=== PATIENT | female | born 1950 | race Caucasian/White ===

== ENCOUNTER 2017-10-20 09:34 | Inpatient (IN) | payer OTHER ==
[2017-10-04 09:08] VITALS: BMI 28.0
--- NOTE | 2017-10-05 13:53 | PAT Medication Instructions ---
Service Date Oct 05, 2017. Current Home Medication List Acetaminophen (Tylenol), 1,000 MG PO PRN Albuterol Sulfate (Proair Respiclick), 1-2 PUFFS INH PRN Amlodipine (Norvasc), 5 MG PO QAM Aspirin (Aspirin Ec), 81 MG PO QAM Atorvastatin (Lipitor), 10 MG PO QPM Calcium Carbonate-Cholecalcife (Caltrate 600+D), 1 TAB PO BID Fluticasone Propionate (Nasal) (Flonase Allergy Relief), 2 SPRAYS INTNAS PRN Loratadine (Claritin), 10 MG PO QAM Meloxicam (Mobic), 15 MG PO QAM Metoprolol Succinate (Toprol Xl), 50 MG PO BID Multiple Vitamins W/ Minerals (Hair Skin and Nails Formu), 1 TAB PO BID Medication Instructions For Your Scheduled Surgery - Check with surgeon for instructions: Meloxicam (Mobic), 15 MG PO QAM - Hold the following medications the morning of surgery: Multiple Vitamins W/ Minerals (Hair Skin and Nails Formu), 1 TAB PO BID Loratadine (Claritin), 10 MG PO QAM Calcium Carbonate-Cholecalcife (Caltrate 600+D), 1 TAB PO BID - Take the following medications the morning of surgery with a sip of water: Metoprolol Succinate (Toprol Xl), 50 MG PO BID Fluticasone Propionate (Nasal) (Flonase Allergy Relief), 2 SPRAYS INTNAS PRN ( if needed) Aspirin (Aspirin Ec), 81 MG PO QAM Acetaminophen (Tylenol), 1,000 MG PO PRN (okay to take up to4 hours prior to surgery if needed) Albuterol Sulfate (Proair Respiclick), 1-2 PUFFS INH PRN (if needed) Amlodipine (Norvasc), 5 MG PO QAM - Take the following medications as scheduled the night before surgery: Metoprolol Succinate (Toprol Xl), 50 MG PO BID Multiple Vitamins W/ Minerals (Hair Skin and Nails Formu), 1 TAB PO BID Fluticasone Propionate (Nasal) (Flonase Allergy Relief), 2 SPRAYS INTNAS PRN ( if needed) Calcium Carbonate-Cholecalcife (Caltrate 600+D), 1 TAB PO BID Atorvastatin (Lipitor), 10 MG PO QPM Acetaminophen (Tylenol), 1,000 MG PO PRN (if needed) Albuterol Sulfate (Proair Respiclick), 1-2 PUFFS INH PRN(if needed) If you have any questions please call us at [phone] or [phone] or [phone]
--- NOTE | 2017-10-05 14:29 | DIAGNOSTIC IMAGING REPORT ---
CHEST 2 VIEWS ROUTINE CLINICAL HISTORY: Preoperative chest COMPARISON STUDY: No previous studies for comparison. FINDINGS: The cardiac and mediastinal contours are normal. There is no evidence of focal pulmonary consolidation. There is no evidence of failure. No pleural effusions are visualized.[ IMPRESSION: No active disease in the chest. Electronically signed by: Joshua Medina M.D. 10/05/2017 2:28 PM Dictated Date/Time: 10/05/2017 2:28 PM
[2017-10-05 15:55] LABS: PTT PATIENT 24.4 SECONDS (21.0-31.0)
[2017-10-20] VITALS (7 sets, daily range): BP systolic 110–165; BP diastolic 60–87; PULSE 61–79; TEMP 36.4–36.9; O2SAT 94–99; Ht 154.9 cm; Wt 67.3 kg
[~2017-10-20] VITALS: Ht 154.9 cm; Wt 67.3 kg
[~2017-10-20 09:34] MED LIST: ACET-1256 PO; ACETAMINOPHEN 500 MG TAB PO SCH; ALBU18002 INH; AMLO5TAB3 PO; ASPI81TA28 PO; ATOR10TA82 PO; ATROPINE SULFATE 0.1 MG/ML 5ML SYR IV PRN; CALC-354 PO; CEFAZOLIN 2000MG IV PUSH 15 ML IV SCH; CLR10 PO; CeleBREX 200 MG CAP PO SCH; EpHEDrine SULFATE INJ 50 MG/ML AMP IV PRN; FENTANYL CITRATE INJ 50 MCG/1 ML 2 ML VIAL IV PRN; FLUT0.15 INTNAS; GABAPENTIN 300 MG CAP PO SCH; HYDROmorphone INJ 0.5 MG/0.5 ML SYR IV PRN; LACTATED RINGER'S 1000ML 1,000 ML IV SCH; MELO7.5T5 PO; METO-217 PO; MULT-1018 PO; ONDANSETRON INJ 2 MG/ML 2 ML VIAL IV PRN
[2017-10-20] MEDS ORDERED: LIDOCAINE HCL 2% 2 ML VIAL (20MG/ML) ONE (12:17)
[2017-10-20] MEDS ORDERED: PROPOFOL IV EMULSION 10 MG/ML 20 ML VIAL ONE (12:17)
[2017-10-20] MEDS ORDERED: GLYCOPYRROLATE INJ 0.2 MG/ML VIAL ONE ×2 (12:17→14:13)
[2017-10-20] MEDS ORDERED: FENTANYL CITRATE INJ 50 MCG/1 ML 2 ML VIAL ONE (12:17)
[2017-10-20] MEDS ORDERED: DEXAMETHASONE SOD INJ 4 MG/ML VIAL ONE (12:17)
[2017-10-20] MEDS ORDERED: MIDAZOLAM HCL 1 MG/ML 2ML VIAL ONE (12:17)
[2017-10-20] MEDS ORDERED: NEOSTIGMINE METHYLSULFATE 1 MG/ML 10ML VIAL ONE (12:17)
[2017-10-20] MEDS ORDERED: ONDANSETRON INJ 2 MG/ML 2 ML VIAL ONE ×2 (12:17→14:13)
--- NOTE | 2017-10-20 12:19 | History & Physical Bridge Note ---
H&P Re-Evaluation Bridge Note: I have examined the patient, reviewed the History & Physical and in the interval since the performance of the History & Physical I have noted the following changes of clinical significance: No changes noted
--- NOTE | 2017-10-20 12:20 | History and Physical ---
History & Physical Date Oct 20, 2017. Chief Complaint Back and leg pain History of Present Illness The patient is a 67 year old female with complaints of back and leg pain Additional History Hepatic Disease: No Endocrine Disorder: No Kidney Disease: No Hypertension: Yes Heart Disease: No Bleeding Tendencies: No Infectious Diseases: No Allergies Coded Allergies: Lisinopril (Verified Allergy, Unknown, COUGH, 10/20/17) Home Medications Scheduled Acetaminophen (Tylenol), 1,000 MG PO PRN Albuterol Sulfate (Proair Respiclick), 1-2 PUFFS INH PRN Amlodipine (Norvasc), 5 MG PO QAM Aspirin (Aspirin Ec), 81 MG PO QAM Atorvastatin (Lipitor), 10 MG PO QPM Calcium Carbonate-Cholecalcife (Caltrate 600+D), 1 TAB PO BID Fluticasone Propionate (Nasal) (Flonase Allergy Relief), 2 SPRAYS INTNAS PRN Loratadine (Claritin), 10 MG PO QAM Meloxicam (Mobic), 15 MG PO QAM Metoprolol Succinate (Toprol Xl), 50 MG PO BID Multiple Vitamins W/ Minerals (Hair Skin and Nails Formu), 1 TAB PO BID Physical Examination Skin: warm/dry, no rash Eyes: normal inspection, EOMI, sclerae normal ENT: normal ENT inspection, pharynx normal Head: normocephalic, atraumatic Neck: supple, no adenopathy, trachea midline Respiratory/Chest: lungs clear, normal breath sounds, no respiratory distress Cardiovascular: regular rate, rhythm, no edema, no murmur Abdomen / GI: normal bowel sounds, non tender Back: normal inspection Extremities: normal inspection, normal range of motion Neurologic/Psych: no motor/sensory deficits, alert, normal reflexes, oriented x 3 Diagnosis Lumbar spinal stenosis with radiculopathy Plan of Treatment L4-S1 decompression and fusion possible L3-4
[2017-10-20] MEDS ORDERED: LARYING-O-JET KIT (LTA) ONE (12:38)
[2017-10-20] MEDS ORDERED: SODIUM CHLORIDE 0.9% INJ 10 ML VIAL ONE (12:38)
[2017-10-20] MEDS ORDERED: HYDROmorphone INJ 2 MG/ML SYR/VIAL ONE (12:39)
[2017-10-20] MEDS ORDERED: BACITRACIN 50000 UNIT VIAL ONE (13:18)
[2017-10-20] MEDS ORDERED: BUPIVACAINE/EPINEPHRINE 0.5% MPF 1:200,000 30 ML VIAL ONE (13:18)
[2017-10-20] MEDS ORDERED: SODIUM CHLORIDE 0.9% PF 50 ML VIAL ONE (13:18)
[2017-10-20] MEDS ORDERED: BUPIVACAINE LIPOSOME 1/3% 266 MG/20 ML VIAL ONE (13:18)
[2017-10-20] MEDS ORDERED: BUPIVACAINE 0.5 % 5 MG/1 ML PF 10ML VIAL ONE (13:19)
[2017-10-20] MEDS ORDERED: EpHEDrine SULFATE 50MG/5ML SYR ONE (14:13)
[2017-10-20] MEDS ORDERED: PHENYLEPHRINE 100MCG/ML 5ML SYR ONE (14:13)
--- NOTE | 2017-10-20 15:57 | [facility] Operative Report ---
Operative Report Operative Date Oct 20, 2017. Pre-Operative Diagnosis Lumbar spinal stenosis with radiculopathy Post-Operative Diagnosis same as preop Procedure(s) Performed 1. Revision decompression medial facetectomies foraminotomies L3-4 L4-5 L5-S1. #2 posterior spinal fusion L4-5 L5-S1. #3 placement posterior segmental instrumentation L4-5 L5-S1. #4 interbody fusion L4-5 L5-S1. #5 placed a peek cage 10 x 22 at L4-5 and 10 x 22 at L5-S1. #6 placement of local autograft in the posterior gutters. #7 placement InFUSE collagen sponge Bymaster graft and posterior gutters and ostial amp in the interbody space. Surgeon Dr. Jd Leigh Vp Talent Management Surgeon(s) Chris Fitch PA-C Estimated Blood Loss 150 Specimens none per surgeon Description of Procedure Patient was met with preoperatively case discussed all questions addressed. After informed consent obtained patient was taken to the operative suite underwent intubation placed prone position on top of the Isiah frame. All bony prominences well-padded eyes inspected to ensure no external pressure placed upon. This point the lumbar spine was prepped and draped in normal sterile fashion. Sharp dissection with the assistance of Bovie cautery was performed down to exposing the remaining lamina and transverse processes of L4- L5 and sacral ala bilaterally. From a caudal cephalad fashion revision complete laminectomy of L5 L4 and partial laminectomy of L3 is performed addressing severe lateral recess and foraminal disease. Obvious pars fracture was noted at 4 5 on the right. Severe scarring in compression of the L4 V nerve on the right was also addressed. Pedicle screws were then placed in L4- L5 and S1 levels bilaterally with the assistance of fluoroscopy the purposes george placed. Through a transforaminal approach on the right knee discectomy of L5-S1 was performed endplates created to subcortical bleeding bone and a 10 x 22 mm peek cage filled with ostium bone graft tapped in position. Then proceeded to 4 5 again through a transforaminal approach and right complete discectomy performed endplates created to subcortical bleeding bone and a 10 x 22 mm peek cage filled with ostium bone graft tapped in position. Rods were then compressed locked in final position bilaterally. The transverse processes of L4-L5 and sacral ala burred to subcortical bleeding bone. Infuse collagen sponge master graft local autograft placed in posterior gutters. Approximately 100 cc of Exparel injected into the musculature. 15 round CHINO drain inserted. Incision was then closed with 1 Vicryl fascia 2-0 Vicryl substantially and 4 Monocryl for fast closure Steri-Strips sterile dressings placed. Patient will continue PACU stable discrete please note Fred Fitch present throughout the entire procedure involved in patient positioning complex portions of the surgery and fashion closure. I attest to the content of the Intraoperative Record and any orders documented therein. Any exceptions are noted below.
[2017-10-20] MEDS ORDERED: ROCURONIUM BROMIDE 10 MG/ML 5 ML VIAL ONE (15:59)
[2017-10-20] MEDS ORDERED: ACETAMINOPHEN IV 100 ML IV PRN (16:00)
[2017-10-20] MEDS ORDERED: BISACODYL 10 MG SUPP PR PRN (16:00)
[2017-10-20] MEDS ORDERED: NALOXONE HCL 0.4 MG/1 ML VIAL/CARP IV PRN (16:00)
[2017-10-20] MEDS ORDERED: MAGNESIUM HYDROXIDE SUSP 30 ML UDC PO PRN (16:00)
[2017-10-20] MEDS ORDERED: FAMOTIDINE 20 MG TAB PO PRN (16:00)
[2017-10-20] MEDS ORDERED: hydrOXYzine HCL 25 MG TAB PO PRN (16:00)
[2017-10-20] MEDS ORDERED: LORAZEPAM INJ 0.5 MG in SYRINGE 0 ML IV PRN (16:00)
[2017-10-20] MEDS ORDERED: SOD PHOSPHATE/SOD BIPHOSPHATE ENEMA 132 ML BTL PR PRN (16:00)
[2017-10-20] MEDS ORDERED: ALUMINUM/MAGNESIUM SUSP 30 ML UDC PO PRN (16:00)
[2017-10-20] MEDS ORDERED: DO NOT ADMINISTER FLU VACCINE PRN (16:00)
[2017-10-20] MEDS ORDERED: METOCLOPRAMIDE HCL INJ 5 MG/ML 2 ML VIAL IV PRN (16:00)
[2017-10-20] MEDS ORDERED: LORAZEPAM 0.5 MG TAB PO PRN (16:00)
[2017-10-20] MEDS ORDERED: PROMETHAZINE HCL INJ 12.5 MG in SODIUM CHLORIDE 0.9% 50ML 50 ML IV PRN (16:00)
[2017-10-20] MEDS ORDERED: CEFAZOLIN IV 1,000 MG in DEXTROSE 5% 50ML 50 ML IV SCH (16:00)
[2017-10-20] MEDS ORDERED: ONDANSETRON INJ 2 MG/ML 2 ML VIAL IV PRN (16:00)
[2017-10-20] MEDS ORDERED: DO NOT ADMINISTER PNEUMOCOCCAL VACCINE PRN (16:00)
[2017-10-20] MEDS ORDERED: ACETAMINOPHEN 500 MG TAB PO PRN (16:00)
--- NOTE | 2017-10-20 16:04 | DIAGNOSTIC IMAGING REPORT ---
LUMBAR SPINE, INTRAOPERATIVE FLUOROSCOPY HISTORY: L4-S1 decompression and fusion. FLUOROSCOPY TIME: 27 seconds. FINDINGS: Intraoperative fluoroscopy was provided for the lumbar spine. 2 fluoroscopic spot images were obtained. Posterior decompression and fusion from L4 through S1 with pedicle screws and rods. The hardware appears intact. IMPRESSION: Fluoroscopy provided for a L4-S1 posterior decompression and fusion. Electronically signed by: Timo Velarde M.D. 10/20/2017 4:02 PM Dictated Date/Time: 10/20/2017 4:02 PM
[2017-10-20] MEDS ORDERED: FLOSEAL HEMOSTATIC MATRIX 10ML TOP ONE (16:24)
--- NOTE | 2017-10-20 17:11 | Anesthesiology Progress Note ---
Anesthesia Post Op Note Date & Time Oct 20, 2017 at 17:11 Vital Signs Pain Intensity: 0 Vital Signs Past 12 Hours Date Time Temp Pulse Resp B/P (MAP) Pulse Ox O2 Delivery O2 Flow Rate FiO2 10/20/17 17:01 59 14 98 10/20/17 17:01 59 14 10/20/17 16:56 76 16 132/61 97 10/20/17 16:56 75 16 10/20/17 16:51 63 16 10/20/17 16:51 62 16 135/62 98 10/20/17 16:46 79 14 137/65 100 10/20/17 16:46 78 14 10/20/17 16:42 104/56 10/20/17 16:41 62 13 99 10/20/17 16:41 61 13 10/20/17 16:36 72 12 10/20/17 16:36 73 12 135/62 100 10/20/17 16:33 132/60 10/20/17 16:31 36.2 67 18 132/60 100 Oxymask 10 10/20/17 10:10 36.9 65 18 165/87 99 Room Air Notes Mental Status: alert / awake / arousable, participated in evaluation Pt Amnestic to Procedure: Yes Nausea / Vomiting: adequately controlled Pain: adequately controlled Airway Patency, RR, SpO2: stable & adequate BP & HR: stable & adequate Hydration State: stable & adequate Anesthetic Complications: no major complications apparent
[2017-10-20] MEDS ORDERED: HYDROmorphone INJ 0.5 MG/0.5 ML SYR IV PRN (18:30)
[2017-10-20] MEDS: SODIUM CHLORIDE 0.9% 1000ML 1,000 ML IV SCH (20:21)
[2017-10-20] MEDS: CEROVITE ADV FORMULA TAB PO SCH (20:38)
[2017-10-20] MEDS: ATORVASTATIN 10 MG TAB PO SCH (20:38)
[2017-10-20] MEDS: DOCUSATE SODIUM/SENNA 50/8.6MG TAB PO SCH (20:38)
[2017-10-20] MEDS: METOPROLOL SUCC 50MG EXT REL TAB PO SCH (20:38)
[2017-10-20] MEDS: CEFAZOLIN IV 1,000 MG in SYRINGE 0 ML IV SCH (21:22)
[2017-10-20] MEDS ORDERED: COUGH DROP (SUGAR FREE) LOZ 24 LOZ/1 BOX LOZ PRN (21:30)
[2017-10-20] MEDS ORDERED: NURSING DECISION MEDICATION ORDER SCH (21:30)
[2017-10-21] VITALS (8 sets, daily range): BP systolic 98–142; BP diastolic 60–78; PULSE 60–77; TEMP 36.4–36.9; O2SAT 96–99
[2017-10-21] MEDS: OXYCODONE HCL IR 5 MG TAB (IMMEDIATE RELEASE) PO PRN ×5 (03:11→20:45)
[2017-10-21] MEDS: SODIUM CHLORIDE 0.9% 1000ML 1,000 ML IV SCH (03:12)
[2017-10-21] MEDS ORDERED: NURSING DECISION MEDICATION ORDER SCH (05:15)
[2017-10-21] MEDS: CEFAZOLIN IV 1,000 MG in SYRINGE 0 ML IV SCH (05:39)
[2017-10-21 06:27] LABS: HEMOGLOBIN 10.8 g/dL (12.0-16.0); IG# 0.05 K/uL (0.00-0.02); LYMPH % 7.6 %; LYMPH ABS # 1.18 K/uL (1.2-3.4); MEAN CELL VOLUME 86.3 fL (80-100); MEAN CORPUSCULAR HEMOGLOBIN 29.1 pg (25-34); MEAN CORPUSCULAR HGB CONC 33.8 g/dl (32-36); MEAN PLATELET VOLUME 10.3 fL (7.4-10.4); MONO % 5.1 %; MONO ABS # 0.79 K/uL (0.11-0.59); PLATELET COUNT 253 K/uL (130-400); RED CELL DISTRIBUTION WIDTH CV 12.8 % (11.5-14.5); RED CELL DISTRIBUTION WIDTH SD 40.6 fL (36.4-46.3); WHITE BLOOD COUNT 15.62 K/uL (4.8-10.8)
[2017-10-21 07:06] LABS: CALCIUM 8.6 mg/dl (8.5-10.1); CREATININE 0.75 mg/dl (0.60-1.20); POTASSIUM 4.1 mmol/L (3.5-5.1)
[2017-10-21] MEDS: METOPROLOL SUCC 50MG EXT REL TAB PO SCH ×2 (07:33→20:45)
[2017-10-21] MEDS: LORATADINE 10 MG TAB PO SCH (07:33)
[2017-10-21] MEDS: ASPIRIN 81 MG ECTAB PO SCH (07:33)
[2017-10-21] MEDS: AMLODIPINE BESYLATE 5 MG TAB PO SCH (07:34)
[2017-10-21] MEDS: CEROVITE ADV FORMULA TAB PO SCH ×2 (07:34→20:44)
--- NOTE | 2017-10-21 08:53 | Progress Note ---
Progress Note Date of Service Oct 21, 2017. Progress Note Patient's back pain is controlled leg symptoms are markedly improved. Vital signs are stable. On exam she is in the chair at bedside is good strength testing appears comfortable assessment status post number depression fusion per plan at this time will initiate physical therapy throughout the weekend anticipate discharge home Monday.
[2017-10-21] MEDS: ATORVASTATIN 10 MG TAB PO SCH (21:00)
[2017-10-21] MEDS: DOCUSATE SODIUM/SENNA 50/8.6MG TAB PO SCH (21:00)
[2017-10-21] MEDS: KETOROLAC TROMETHAMINE 15 MG/ML VIAL IV. PRN (23:51)
[2017-10-22] MEDS: POLYETHYLENE (MIRALAX) 17 GM PACK PO SCH ×2 (05:55→12:17)
[2017-10-22 06:13] VITALS: BP 136/71; PULSE 73; TEMP 36.7; O2SAT 97
[2017-10-22] MEDS: KETOROLAC TROMETHAMINE 15 MG/ML VIAL IV. PRN ×2 (07:18→15:08)
[2017-10-22] MEDS: CEROVITE ADV FORMULA TAB PO SCH ×2 (07:20→20:43)
[2017-10-22] MEDS: ASPIRIN 81 MG ECTAB PO SCH (07:21)
[2017-10-22] MEDS: LORATADINE 10 MG TAB PO SCH (07:21)
[2017-10-22] MEDS: METOPROLOL SUCC 50MG EXT REL TAB PO SCH ×2 (07:21→20:43)
[2017-10-22] MEDS: AMLODIPINE BESYLATE 5 MG TAB PO SCH (07:22)
[2017-10-22] MEDS ORDERED: RXC5 PO (10:07)
--- NOTE | 2017-10-22 10:08 | Discharge Instructions ---
Discharge Instructions Date of Service Oct 22, 2017. Admission Reason for Admission: Spinal Stenosis Discharge Discharge Diagnosis / Problem: lumbar stenosis Discharge Goals Goal(s): Improve function Activity Recommendations Activity Limitations: per Instructions/Follow-up section . Instructions / Follow-Up Instructions / Follow-Up ACTIVITY RECOMMENDATIONS: SELF CARE INSTRUCTIONS AFTER THORACIC/LUMBAR FUSIONS 1. You may walk to your tolerance. It is good exercise for your legs and back. Expect some back and intermittent leg aches and pains. 2. You may perform "counter-top" level activities (make a sandwich, janelle with a project, etc.). 3. No bending or lifting of more than 10 pounds or back twisting of any nature (roll like a log when turning in bed). 4. You may ride in a car for 20-30 minutes at a time. No driving until after your first visit with your doctor. 5. Frequent changes of position and restricting sitting to 30 minutes at a time will help limit the amount of back spasms and stiffness you may experience. 6. You may discontinue the use of ambulatory aids (cane, crutches, etc.) once your strength and confidence allow. 7. You may turpentine distiller the shower and let water strike your incision when you arrive home at least once daily. Do not take a tub bath, sit in a hot tub or go into a swimming pool until after your first recheck in the office. SPECIAL CARE INSTRUCTIONS: VERY IMPORTANT TO READ AND REVIEW A. Your surgical incision has been closed with a cosmetic suture under the skin that will dissolve in about 6 weeks. In 14 days, you can use a pair of clean scissors and cut the suture that is left outside of the skin at the ends of your incision. 1. The small skin tapes can be removed 7 days after surgery if they have not fallen off by that point. 2. You may keep the wound open to air as much as possible to promote healing after post-op day number 5 unless told otherwise by your doctor. 3. If you think the wound looks like it is becoming infected (redness or worsening drainage) and/or you are experiencing fever, chill or worsening back pain and muscle spasms, contact the office so that we may evaluate you as soon as possible. B. Complications are uncommon, but please contact us if you have any signs or symptoms of: 1. wound infection (fever higher than 102.5 degrees F, redness, separation of wound, drainage, or increasing pain from the incision) 2. blood clots in legs (pain, swelling, redness and warmth in legs) 3. urinary tract infection (fever higher than 102.5 degrees F, burning upon urination or increased frequency of urination) 4. nerve problems (inability to walk on your toes or heels, numbness, loss of bowel or bladder control) 5. any other symptoms that concern you C. Please call the office at if you have any concerns or questions about your operation or recovery. D. No smoking! Smoking drastically decreases the chance of a solid fusion. E. Do not take any anti-inflammatory medications (Indocin, Advil, Motrin, Aspirin, Naprosyn, etc.) as these may inhibit the chance of a solid fusion. Tylenol is okay to take for pain. MANAGING PAIN AFTER SPINAL SURGERY 1. Narcotic medication is intended for short-term use and will be provided for surgical pain. Surgical pain usually lasts for a period of 4-6 weeks. Narcotic medication includes Percocet, Vicodin, Darvocet, Tylenol #3 or Lortab. 2. Longer-term pain is more appropriately treated with non-narcotic medication such as Tylenol ES. 3. Muscle spasm is not appropriately treated with narcotics. Muscle relaxers such as Soma, Flexeril or Skelaxin can be used along with Tylenol ES. 4. Remember that we all live with some "aches and pains". This is not unusual or uncommon after an injury or as we get older. a. Back pain is expected and may include muscle spasms for 4 to 6 weeks after surgery. The pain should gradually improve. If the pain worsens for no apparent reason, please contact the office. b. Intermittent leg pain may also be experienced and should not be concerned about unless it worsens for no apparent reason. If so, please contact the office. 5. We will provide appropriate medication within the normal guidelines of their prescribed use. We will also be very cautious and aware of potential abuse and extended duration of patients' medication needs. a. Pain medications are for your comfort and to assist with sleep and rest so that the tissue can heal. They are not provided in order to return to normal activity and should not be used through the day. To do so or worsening pain at night can result from ongoing tissue damage and development of tolerance to the prescribed medicine. 6. Please allow 2-3 days to process refills. Prescriptions will not be mailed but must be picked up at the office. FOLLOW UP VISIT: Keep your scheduled follow-up appointment. Any questions, please call the office at . Current Hospital Diet Patient's current hospital diet: Regular Diet Discharge Diet Recommended Diet: Regular Diet Procedures Procedures Performed: 1. Revision decompression medial facetectomies foraminotomies L3-4 L4-5 L5-S1. #2 posterior spinal fusion L4-5 L5-S1. #3 placement posterior segmental instrumentation L4-5 L5-S1. #4 interbody fusion L4-5 L5-S1. #5 placed a peek cage 10 x 22 at L4-5 and 10 x 22 at L5-S1. #6 placement of local autograft in the posterior gutters. #7 placement InFUSE collagen sponge Bymaster graft and posterior gutters and ostial amp in the interbody space. Pending Studies Studies pending at discharge: no Laboratory Results Hemoglobin A1c Test 08/31/17 08:14 Range/Units Estimated Average Glucose 137 mg/dl Hemoglobin A1c 6.4 H 4.5-5.6 % Lipid Panel Test 08/31/17 08:14 Range/Units Triglycerides Level 161 H 0-150 mg/dl Cholesterol Level 155 0-200 mg/dl HDL Cholesterol 51 mg/dl Cholesterol/HDL Ratio 3.0 LDL Cholesterol, Calculated 72 mg/dl Medical Emergencies . Who to Call and When: Medical Emergencies: If at any time you feel your situation is an emergency, please call 911 immediately. . Non-Emergent Contact Non-Emergency issues call your: Primary Care Provider . "Provider Documentation" section prepared by Jd Leigh. .
[2017-10-22] MEDS: OXYCODONE HCL IR 5 MG TAB (IMMEDIATE RELEASE) PO PRN ×2 (10:38→23:32)
--- NOTE | 2017-10-22 10:49 | Progress Note ---
Progress Note Date of Service Oct 22, 2017. Progress Note Patient's back pain is controlled leg symptoms markedly improved vital signs stable CHINO drain decreasing appropriately. On exam she is good strength testing is comfortable assessment status post lumbar depression fusion per plan at this time will continue physical therapy monitor CHINO output anticipate discharge home tomorrow.
[2017-10-22] MEDS ORDERED: NURSING VERBAL MED ORDER ONE (13:45)
[2017-10-22 15:19] VITALS: BP 146/72; PULSE 76; TEMP 37; O2SAT 97
[2017-10-22] MEDS: DOCUSATE SODIUM/SENNA 50/8.6MG TAB PO SCH (19:34)
[2017-10-22 20:41] VITALS: BP 116/68; PULSE 82
[2017-10-22] MEDS: ATORVASTATIN 10 MG TAB PO SCH (20:42)
[2017-10-22 22:52] VITALS: BP 127/65; PULSE 82; TEMP 37.1; O2SAT 97
[2017-10-23 06:01] VITALS: BP 112/68; PULSE 76; TEMP 37.2; O2SAT 94
[2017-10-23] MEDS: OXYCODONE HCL IR 5 MG TAB (IMMEDIATE RELEASE) PO PRN ×2 (06:40→10:04)
[2017-10-23] MEDS: LORATADINE 10 MG TAB PO SCH (07:19)
[2017-10-23] MEDS: CEROVITE ADV FORMULA TAB PO SCH (07:19)
[2017-10-23] MEDS: METOPROLOL SUCC 50MG EXT REL TAB PO SCH (07:19)
[2017-10-23] MEDS: AMLODIPINE BESYLATE 5 MG TAB PO SCH (07:20)
[2017-10-23] MEDS: ASPIRIN 81 MG ECTAB PO SCH (07:20)
[2017-10-23 10:39] VITALS: BP 112/68; PULSE 76; TEMP 37.2; O2SAT 94
--- NOTE | 2017-10-23 15:51 | Discharge Summary ---
Orthopedic Discharge Summary Admission Date/Reason Oct 20, 2017 at 16:00 Spinal Stenosis. Discharge Date/Disposition Oct 23, 2017 Home Diagnosis Principal Diagnosis: Lumbar spinal stenosis with radiculopathy Admission Physical Exam As per Admitting History & Physical. Hospital Course Patient underwent lumbar decompression fusion tolerated this well was taken to the orthopedic floor possibly. Postop day #1 she was up and amatory progressed appropriately through postop day #2. CHINO drain decreased appropriately. Subsequently she was discharged home on postop day #3. Discharge orders and instructions can be found in the chart for further review. Discharge Instructions Please refer to the electronic Patient Visit Report (Discharge Instructions) for additional information.
== END 2017-10-23 11:04 | disposition home or self-care (01) | DRG 455 ==
LOC: C.ACU 09:34 → C.3E 16:00 → ENRESERV 16:52
PROVIDERS: ADMIT Orthopaedic Surgery Orthopaedic Surgery of the Spine; ATTEND Orthopaedic Surgery Orthopaedic Surgery of the Spine
PROC: 0ST20ZZ Resection of Lumbar Vertebral Disc, Open Approach (ICD-10-PCS; principal; 2017-10-20 12:45)
PROC: 0SG3071 Fusion of Lumbosacral Joint with Autologous Tissue Substitute, Posterior Approach, Posterior Column, Open Approach (ICD-10-PCS; principal; 2017-10-20 12:45)
PROC: 0SG00AJ Fusion of Lumbar Vertebral Joint with Interbody Fusion Device, Posterior Approach, Anterior Column, Open Approach (ICD-10-PCS; principal; 2017-10-20 12:45)
PROC: 0SG0071 Fusion of Lumbar Vertebral Joint with Autologous Tissue Substitute, Posterior Approach, Posterior Column, Open Approach (ICD-10-PCS; principal; 2017-10-20 12:45)
PROC: 0SG30AJ Fusion of Lumbosacral Joint with Interbody Fusion Device, Posterior Approach, Anterior Column, Open Approach (ICD-10-PCS; principal; 2017-10-20 12:45)
PROC: 0ST40ZZ Resection of Lumbosacral Disc, Open Approach (ICD-10-PCS; principal; 2017-10-20 12:45)
DX: M48.061 Spinal stenosis, lumbar region without neurogenic claudication (principal); M54.16 Radiculopathy, lumbar region; Z79.82 Long term (current) use of aspirin; Z79.899 Other long term (current) drug therapy

== ENCOUNTER 2022-03-30 09:58 | Inpatient (IN) ==
--- NOTE | 2022-03-03 09:19 | PAT Medication Instructions ---
Medication Instructions Date of Service March 03, 2022 Home Medications Medication Instructions Recorded aspirin 81 mg tablet,delayed 81 mg PO DAILY #90 tabs 08/30/18 release calcium carbonate 600 mg-vitamin 1 tab PO BID #180 tabs 08/30/18 D3 20 mcg (800 unit) chewable tablet (Caltrate 600 plus D) loratadine 10 mg tablet 10 mg PO DAILY #90 tabs 08/30/18 albuterol sulfate 90 mcg/actuation 2 puff inhalation Q4H PRN cough 10/04/21 aerosol inhaler (Ventolin HFA) and wheezing #8.5 grams alendronate 70 mg tablet (Fosamax) 70 mg PO .COMPLEX #12 tabs 10/04/21 amlodipine 10 mg tablet 10 mg PO DAILY #90 tabs 10/04/21 atorvastatin 10 mg tablet 10 mg PO DAILY #90 tabs 10/04/21 meloxicam 15 mg tablet 15 mg PO DAILY #90 tabs 10/04/21 metoprolol tartrate 50 mg tablet 50 mg PO BID #180 tabs 10/04/21 triamcinolone acetonide 0.1 % 1 applic topical QID #15 grams 10/04/21 topical cream aspirin 81 mg tablet,delayed release 81 mg PO DAILY calcium carbonate 600 mg-vitamin D3 20 mcg (800 unit) chewable tablet (Caltrate 600 plus D) 1 tab PO BID loratadine 10 mg tablet 10 mg PO DAILY cholecalciferol (vitamin D3) 25 mcg (1,000 unit) capsule 1,000 units PO QAM albuterol sulfate 90 mcg/actuation aerosol inhaler (Ventolin HFA) 2 puff inhalation Q4H PRN cough and wheezing alendronate 70 mg tablet (Fosamax) 70 mg PO .COMPLEX amlodipine 10 mg tablet 10 mg PO DAILY atorvastatin 10 mg tablet 10 mg PO DAILY meloxicam 15 mg tablet 15 mg PO DAILY metoprolol tartrate 50 mg tablet 50 mg PO BID triamcinolone acetonide 0.1 % topical cream 1 applic topical QID fluticasone propionate 50 mcg/actuation nasal spray,suspension (Flonase Allergy Relief) 2 spray intranasal QAM Continue as directed alendronate 70 mg tablet (Fosamax) 70 mg PO .COMPLEX ASK your surgeon for instructions meloxicam 15 mg tablet 15 mg PO DAILY ASK your prescriber and surgeon aspirin 81 mg tablet,delayed release 81 mg PO DAILY STOP taking 24 hours before surgery triamcinolone acetonide 0.1 % topical cream 1 applic topical QID DO NOT take the morning of surgery calcium carbonate 600 mg-vitamin D3 20 mcg (800 unit) chewable tablet (Caltrate 600 plus D) 1 tab PO BID loratadine 10 mg tablet 10 mg PO DAILY cholecalciferol (vitamin D3) 25 mcg (1,000 unit) capsule 1,000 units PO QAM Take morning of surgery With a small sip of water, OTHERWISE NOTHING TO EAT OR DRINK AFTER MIDNIGHT: albuterol sulfate 90 mcg/actuation aerosol inhaler (Ventolin HFA) 2 puff inhalation Q4H PRN cough and wheezing (use if needed; please bring rescue inhaler with you to hospital day of surgery if possible) amlodipine 10 mg tablet 10 mg PO DAILY atorvastatin 10 mg tablet 10 mg PO DAILY metoprolol tartrate 50 mg tablet 50 mg PO BID fluticasone propionate 50 mcg/actuation nasal spray,suspension (Flonase Allergy Relief) 2 spray intranasal QAM Take evening before surgery calcium carbonate 600 mg-vitamin D3 20 mcg (800 unit) chewable tablet (Caltrate 600 plus D) 1 tab PO BID albuterol sulfate 90 mcg/actuation aerosol inhaler (Ventolin HFA) 2 puff inhalation Q4H PRN cough and wheezing (if needed) metoprolol tartrate 50 mg tablet 50 mg PO BID Other Notes If you have any questions please call us at [phone] or [phone] or [phone] or [phone]
--- NOTE | 2022-03-09 09:03 | Anesthesiology Consultation ---
Date of Service March 09, 2022 Assessment & Plan (1) Encounter for pre-operative examination: Chart Review Chart Review: Acceptable Risk for Surgery (pending 03/14/22 PCP clearance ) and Patient seen in Pre Admission Testing -Awaiting PCP clearance 03/14/22 Per PAT appt on 03/09/22, patient denies any recent travel or large group activities. Pt is vaccinated for Covid. Pt tested Covid positive at [facility] 1 04/24/21. Will not need retested for Covid DOS due to 90 day protocol. Educated on importance of using Covid precautions one week prior to surgery History Surgery Operation Date: 03/30/22 10:05 Proposed Procedures p L2-L4 Decompression and L2-S1 Fusion, L4-S1 Hardware Removal, Spinal Cord Monitoring - Jd Leigh, Height/Weight Height: 5 ft 1.5 in Weight: 68.8 kg Allergies Allergy/AdvReac Type Severity Reaction Status Date / Time lisinopril Allergy Unknown COUGH Verified 03/04/22 09:01 Medications Home Medications Medication Instructions Recorded Confirmed Last Taken aspirin 81 mg tablet,delayed 81 mg PO DAILY #90 tabs 08/30/18 03/04/22 Unknown release calcium carbonate 600 mg-vitamin 1 tab PO BID #180 tabs 08/30/18 03/04/22 Unknown D3 20 mcg (800 unit) chewable tablet (Caltrate 600 plus D) loratadine 10 mg tablet 10 mg PO DAILY #90 tabs 08/30/18 03/04/22 Unknown cholecalciferol (vitamin D3) 25 1,000 units PO QAM 12/24/18 03/04/22 Unknown mcg (1,000 unit) capsule albuterol sulfate 90 mcg/actuation 2 puff inhalation Q4H PRN cough 10/04/21 03/04/22 Unknown aerosol inhaler (Ventolin HFA) and wheezing #8.5 grams alendronate 70 mg tablet (Fosamax) 70 mg PO .COMPLEX #12 tabs 10/04/21 03/04/22 Unknown amlodipine 10 mg tablet 10 mg PO DAILY #90 tabs 10/04/21 03/04/22 Unknown atorvastatin 10 mg tablet 10 mg PO DAILY #90 tabs 10/04/21 03/04/22 Unknown meloxicam 15 mg tablet 15 mg PO DAILY #90 tabs 10/04/21 03/04/22 Unknown metoprolol tartrate 50 mg tablet 50 mg PO BID #180 tabs 10/04/21 03/04/22 Unknown triamcinolone acetonide 0.1 % 1 applic topical QID #15 grams 10/04/21 03/04/22 Unknown topical cream fluticasone propionate 50 2 spray intranasal QAM 03/03/22 03/04/22 Unknown mcg/actuation nasal spray,suspension (Flonase Allergy Relief) prednisone 10 mg tablet See Rx Instructions PO DAILY #21 03/04/22 03/04/22 Unknown tabs Past Medical History Medical History Allergic rhinitis Asthma Breathing stable currently Back pain, chronic Eczema Goiter Under observation History of COVID-19 02/22/22 ([facility], PCR), symptoms at time: low grade fever, cough, sinus congestion > symptoms resolved HTN (hypertension) Hyperlipidemia Impaired fasting glucose Hgb A1C 03/04/22= 6.4 Lumbar stenosis with neurogenic claudication Stress incontinence, female Minimal Exercise / Class Metabolic Activity II 4-5 Yardwork/Stairs/Walk up hill (one flight of stairs- no chest pain or SOB ) Past Family History Family History Mother Dementia Lung cancer Father Cancer Grandfather (Maternal) Myocardial infarction Grandmother (Maternal) Alzheimer disease Stroke Other No family history of adverse response to anesthesia Past Surgical History Surgical History H/O rotator cuff surgery H/O: hysterectomy Hx of cataract extraction b/l Previous back surgery L3-S1 decompression, L4-S1 decompression/fusion (10/20/17): Grade view 2, MAC#3, ETT 7 at [facility]. No issues noted per post-op anesthesia progress note. Past Anesthesia History No Hx of Anesthesia Complications and No Family Hx of Anesthesia Complications History of PONV No Hx of PONV and No Hx of Motion Sickness Social History Smoking Status: Never smoker Do You Dip or Chew Tobacco: No Hx Alcohol Use: Yes Alcohol type: beer and wine alcohol intake frequency: a few times a month Hx Substance Use: No substance use type: does not use Review of Systems Patient denies chest pain, shortness of breath, dyspnea on exertion, reflux, cough, wheezing, palpitations. No hx of seizures, stroke, DC, apnea/snoring. No hx of blood clots or blood transfusions Physical Exam Vital Signs VITALS BP 160/74 (usually better controlled with BP- checks frequently at home- usually 120-130s/70s) P 60 TEMP 98.4 SP02 96% RESP 16 Constitutional no acute distress ENMT Mouth: no TMJ clicking Thyromental Distance: < 3.5 Finger Breadths (3.0) Mallampati Class: II (smaller airway) Missing molars Neck + limited neck extension (minimal) Respiratory normal respiratory effort; no respiratory distress Auscultation: lungs clear to auscultation bilaterally; no wheezes Cardiovascular Rate/Rhythm: regular rate and regular rhythm Heart Sounds: no murmur Vessels: no carotid bruit Musculoskeletal Spine: no pain with cervical ROM Extremities: extremities normal to inspection Psychiatric Orientation: alert Lab Results Anesthesia Preop Results Results Anesthesia Widget: WBC 7.83 K/ul (4.8-10.8) 03/04/22 Hgb 12.9 g/dl (12.0-16.0) 03/04/22 Hct 38.3 % (34.1-44.9) 03/04/22 Plt 327 K/uL (130-400) 03/04/22 Na 141 mmol/L (136-145) 03/04/22 K 3.5 mmol/L (3.5-5.1) 03/04/22 Cl 105 mmol/L (98-107) 03/04/22 CO2 30 mmol/L (21-32) 03/04/22 BUN 13 mg/dl (6-23) 03/04/22 Creat 0.58 mg/dl (0.6-1.2) L 03/04/22 Glucose Level 103 mg/dl (70-99(Fasting)) H 03/04/22 PT 10.0 Seconds (9.0-12.0) 03/09/22 PTT 21.9 Seconds (21.0-31.0) 03/09/22 INR 0.9 (0.9-1.1) 03/09/22 TSH 1.433 uIu/ml (0.300-4.500) 03/04/22 HA1c 6.4 % (4.5-5.6) H 03/04/22 Urine Color Yellow 03/09/22 Urine Appearance Clear (Clear) 03/09/22 Urine pH 7.5 (4.5-7.5) 03/09/22 Urine Specific [place] 1.009 (1.000-1.030) 03/09/22 Urine Protein Negative (Negative) 03/09/22 Urine Glucose (UA) Negative (Negative) 03/09/22 Urine Ketones Negative (Negative) 03/09/22 Urine Blood Negative (Negative) 03/09/22 Urine Nitrite Negative (Negative) 03/09/22 Urine Bilirubin Negative (Negative) 03/09/22 Urine Urobilinogen Negative (Negative) 03/09/22 Urine Leukocyte Esterase Negative (Negative) 03/09/22 COVID-19 PCR POSITIVE (Negative) A* 02/22/22 Blood Type O Positive 03/09/22 Antibody Screen NEGATIVE 03/09/22 Testing Electrocardiogram Date: 03/09/22 Findings: + SB @ (58bpm ) Otherwise normal EKG per cardio Chest X-Ray Date: 03/09/22 Findings: + NAD FINDINGS: PA and lateral chest radiographs are compared to study dated 10/05/2017. The heart is top normal for projection noting atherosclerotic calcification of the thoracic aorta. Chronic interstitial thickening is similar to previous. The lungs and pleural spaces are clear. There is no pneumothorax. The skeletal structures are osteopenic. The bony thorax appears intact. COVID-19 Risk Screen Screening Information COVID-19 Screen Date: 03/09/22 Exposure 21 Days Family/Household +COVID Last 21 Days: No Exposure 10 Days Any COVID Exposure Last 10 Days: No Symptoms Last 10 Days Experienced COVID Sx Last 10 Days: No + COVID 0-90 Days COVID + in Last 0-90 Days: Yes + COVID Test 0-10 Day: No + COVID Test 11-90 Day: Yes Date/Place of COVID-19 Test: 02/22/22 What were Your COVID-19 Symptoms: Cough, low grade fever, chest congestion Currently Having Symptoms Related to COVID: No Were You Hospitalized due to COVID-19 and Where: No COVID Testing Site COVID-19 Preop/Pre-Procedure Testing Site: [facility] (02/22/22= positive ) Risk Plan COVID Risk Plan: Last 11-D + CoV Test Patient Education COVID Preop Screening Education Complete: Yes
[~2022-03-30 09:58] MED LIST changes: -ACET-1256 PO; -ALBU18002 INH; -AMLO5TAB3 PO; -ASPI81TA28 PO; -ATOR10TA82 PO; -ATROPINE SULFATE 0.1 MG/ML 5ML SYR IV PRN; -CALC-354 PO; -CEFAZOLIN 2000MG IV PUSH 15 ML IV SCH; -CLR10 PO; -EpHEDrine SULFATE INJ 50 MG/ML AMP IV PRN; -FENTANYL CITRATE INJ 50 MCG/1 ML 2 ML VIAL IV PRN; -FLUT0.15 INTNAS; -HYDROmorphone INJ 0.5 MG/0.5 ML SYR IV PRN; -LACTATED RINGER'S 1000ML 1,000 ML IV SCH; +LR 15ML/HR IV SCH; -MELO7.5T5 PO; -METO-217 PO; -MULT-1018 PO; -ONDANSETRON INJ 2 MG/ML 2 ML VIAL IV PRN; +ceFAZolin 2000MG 2,000 MG/15 ML SYR IV SCH
[2022-03-30] MEDS ORDERED: DEXAMETHASONE SOD INJ 4 MG/ML VIAL ONE (10:58)
[2022-03-30] MEDS ORDERED: ONDANSETRON INJ 2 MG/ML 2 ML VIAL ONE (10:58)
[2022-03-30] MEDS ORDERED: PROPOFOL IV EMULSION 10 MG/ML 20 ML VIAL IV ONE (10:58)
[2022-03-30] MEDS ORDERED: ROCURONIUM BROMIDE 10 MG/ML 5 ML VIAL IV ONE (10:58)
[2022-03-30] MEDS ORDERED: MIDAZOLAM HCL 1 MG/ML 2ML VIAL ONE (10:58)
[2022-03-30] MEDS ORDERED: LIDOCAINE 2% MPF LOCAL 5 ML VIAL INFIL ONE (10:58)
[2022-03-30] MEDS ORDERED: fentaNYL citrate 100 MCG/2 ML VIAL ONE (10:59)
--- NOTE | 2022-03-30 11:16 | History & Physical Bridge Note ---
Date of Service March 30, 2022 History & Physical Bridge Note I have examined the patient, reviewed the History & Physical and in the interval since the performance of the History & Physical I have noted the following changes of clinical significance: no changes noted
--- NOTE | 2022-03-30 11:17 | History & Physical Report ---
Date of Service March 30, 2022 Assessment & Plan (1) Neurogenic claudication due to lumbar spinal stenosis: Plan: L2-4 decompression and L2-S1 fusion, L4-S1 hardware removal History of Present Illness Chief Complaint: Back and leg pain Primary Care Provider: Magalis Posadas PA-C This is a 71-year-old female known to the presents chronic persistent back and leg pain after failing since course of nonoperative care she is here for surgical invention. Allergies Allergy/AdvReac Type Severity Reaction Status Date / Time lisinopril Allergy Unknown COUGH Verified 03/30/22 10:23 Home Medications Medication Instructions Recorded Confirmed Type aspirin 81 mg tablet,delayed 81 mg PO DAILY #90 tabs 08/30/18 03/30/22 Rx release calcium carbonate 600 mg-vitamin 1 tab PO BID #180 tabs 08/30/18 03/30/22 Rx D3 20 mcg (800 unit) chewable tablet (Caltrate 600 plus D) cholecalciferol (vitamin D3) 25 1,000 units PO QAM 12/24/18 03/30/22 History mcg (1,000 unit) capsule albuterol sulfate 90 mcg/actuation 2 puff inhalation Q4H PRN cough 10/04/21 03/30/22 Rx aerosol inhaler (Ventolin HFA) and wheezing #8.5 grams meloxicam 15 mg tablet 15 mg PO DAILY #90 tabs 10/04/21 03/30/22 Rx metoprolol tartrate 50 mg tablet 50 mg PO BID #180 tabs 10/04/21 03/30/22 Rx fluticasone propionate 50 2 spray intranasal QAM 03/03/22 03/30/22 History mcg/actuation nasal spray,suspension (Flonase Allergy Relief) alendronate 70 mg tablet (Fosamax) 70 mg PO .COMPLEX #12 tabs 03/29/22 03/30/22 Rx amlodipine 10 mg tablet (Norvasc) 10 mg PO DAILY 03/30/22 03/30/22 History atorvastatin 10 mg tablet (Lipitor) 10 mg PO DAILY 03/30/22 03/30/22 History loratadine 10 mg tablet (Claritin) 10 mg PO DAILY 03/30/22 03/30/22 History Past Med/Surg History Medical History Allergic rhinitis Asthma Breathing stable currently Back pain, chronic Eczema Goiter Under observation History of COVID-19 02/22/22 ([facility], PCR), symptoms at time: low grade fever, cough, sinus congestion > symptoms resolved HTN (hypertension) Hyperlipidemia Impaired fasting glucose Hgb A1C 03/04/22= 6.4 Lumbar stenosis with neurogenic claudication Stress incontinence, female Minimal Surgical History H/O rotator cuff surgery H/O: hysterectomy Hx of cataract extraction b/l Previous back surgery L3-S1 decompression, L4-S1 decompression/fusion (10/20/17): Grade view 2, MAC#3, ETT 7 at [facility]. No issues noted per post-op anesthesia progress note. Family History Mother Dementia Lung cancer Father Cancer Grandfather (Maternal) Myocardial infarction Grandmother (Maternal) Alzheimer disease Stroke Other No family history of adverse response to anesthesia Social History Smoking Status: Never smoker Second Hand Exposure: No; Do You Dip or Chew Tobacco: No; Tobacco Cessation Education Requested by Patient: No Hx Alcohol Use: Yes Alcohol type: beer and wine Hx Substance Use: No Preferred Language: Montene[place]in Communication Ability: Effective Visual Impairment: Limited Hearing Ability: Normal Maintenance Operator Required: No Beliefs That Will Affect Care: None marital status: Current Living Situation: Spouse current occupational status: retired Other Information That Helps Us Care for You: No Feels Safe at Home: Yes Safety Concerns: Feels Safe At This Time Childhood Exposure to Second-Hand Smoke: Yes Dental Care, Regularly: Yes Physical Activity Frequency: 1-2 Times per Week Seatbelt Use: always Assistive Devices: Cane Assistive Devices Comment: partial dental implant Physical Exam Physical Exam: Patient is alert and oriented Heart regular rhythm Lungs clear Results & Data Results & Data ([facility]) Vital Signs (Past 12 Hours) Vital Signs Temp Pulse Resp BP Pulse Ox O2 Del Method 03/30/22 10:30 36.9 C 68 18 147/72 H 99 Room Air
[2022-03-30] MEDS ORDERED: hydrALAZINE HCL 20 MG/ML VIAL ONE (11:18)
[2022-03-30] MEDS ORDERED: BUPIVACAINE/EPINEPHRINE 0.25% 1:200,000 30 ML VIAL ONE (11:29)
[2022-03-30] MEDS ORDERED: ceFAZolin 330 MG/ML 1 GM VIAL ONE (11:29)
[2022-03-30] MEDS ORDERED: ALBUTEROL HFA INHALER 8.5 GM INH ONE (12:07)
[2022-03-30] MEDS ORDERED: FLOSEAL HEMOSTATIC MATRIX 10ML TOP ONE (12:20)
[2022-03-30] MEDS ORDERED: NEOSTIGMINE METHYLSULFATE 1 MG/ML 10ML VIAL ONE (12:57)
[2022-03-30] MEDS ORDERED: GLYCOPYRROLATE 0.2 MG/ML VIAL ONE (12:57)
--- NOTE | 2022-03-30 13:29 | Operative Report ---
Post Operative Report Pre & Post Diagnosis Operation Date: 03/30/22 11:35 Pre-Op Diagnosis: Spinal Stenosis, Lumbar Region with Neurogenic Claudication Post-Op Diagnosis: Spinal Stenosis, Lumbar Region with Neurogenic Claudication I identified the patient and participated in the time-out.: Yes Procedure Operation Date: 03/30/22 11:35 Actual Procedures #1 removal of posterior instrumentation L4-L5 L5-S1. #2 exploration of fusion L4-L5 L5-S1. #3 lumbar decompression bilaterally facetectomies and foraminotomies L2-L3 L3-L4. #4 posterior spinal fusion L2-L4. #5 placement of posterior instrumentation L2-S1. #6 interbody fusion L3-L4. #7 placement of Spira 11 x 26 mm cage at L3-L4. #8 placement locally harvested morselized autograft in the posterior gutters. #9 placement of I factor combined with V toss interbody space and posterior lateral gutters. Surgeon Jd Leigh, DO Core Carrier Bibiana Terry Estimated Blood Loss 150 Findings Consistent with Post-Op Diagnosis Specimens None Indications This is a 71-year-old female known to me the presents with above-mentioned diagnosis after failing course of nonoperative care she is here for surgical invention. Description of Procedure Patient was met with identified informed consent obtained. Patient was then taken suite underwent ablation placed in the prone position the Kiran table top Isiah frame. All bony prominences well-padded eyes inspected to ensure no external pressure placed upon them. This point the lumbar spine was prepped and draped no sterile fashion. Sharp dissection with the assistance of Bovie cautery was performed down to and exposing the lamina and transverse processes of L2-L3 and instrumentation L4-L5 and S1 levels bilaterally. And then proceeded move the hardware bilaterally explore the fusion mass noting it to be intact. Informed complete laminectomy of L3 and L2 including bilateral medial facetectomies and foraminotomies addressing severe spinal stenosis. Pedicle screws were then placed L2-L3 of L4 and S1 levels bilaterally with assistance of fluoroscopy and appropriate sized george contoured and locked into position. By way of transforaminal approach on the left complete discectomy of L3-L4 was performed endplates curetted to subcortical bleeding bone and a 11 x 26 mm spiral cage with I factor tapped in position. The rods were then locked into final position in the transverse processes of L2-L3-L4 burred to subcortical bleeding bone. I factor combined with V toss and locally harvested morselized autograft was placed in the posterior gutters. 15 round CHINO drain inserted. The incision was then closed with 1 Vicryl the fascia 2-0 Vicryl subcutaneously and 4 Monocryl for final skin closure. Steri-Strips dressings placed. Patient waken taken to PACU in stable condition. Please note spinal cord monitoring was utilized at the procedure no changes noted. Lastly Bibiana Terry was present at the entire procedure all the patient positioning complex portions of the surgery and final skin closure. I attest to the content of the Intraoperative Record and any orders documented therein. Any exceptions are noted below.
[2022-03-30] MEDS ORDERED: PROMETHAZINE HCL 6.25 MG in SODIUM CHLORIDE 0.9% 50 ML IV PRN (13:33)
[2022-03-30] MEDS ORDERED: ONDANSETRON INJ 2 MG/ML 2 ML VIAL IV PRN ×2 (13:33→15:18)
[2022-03-30] MEDS ORDERED: HYDROmorphone INJ 2 MG/ML SYR/VIAL IV PRN (13:33)
[2022-03-30] MEDS ORDERED: ATROPINE SULFATE 0.1 MG/ML 10ML SYR IV PRN (13:33)
[2022-03-30] MEDS ORDERED: ePHEDrine sulfate 50 MG/ML AMP IV PRN (13:33)
[2022-03-30] MEDS: fentaNYL citrate 100 MCG/2 ML VIAL IV PRN ×2 (13:56→14:02)
--- NOTE | 2022-03-30 14:51 | Fluoroscopy Report ---
FL lumbar spine 2-3V CLINICAL HISTORY: L2-L4 DECOMP;L2-S1 FUSION; L4-S1 HARDWARE REMOVAL TECHNIQUE: 2 views were obtained with the C-arm in the OR with the above procedure. Total fluoroscopy time was 18.5 seconds. Radiation dose was 10.34 mGy. Comparison: Comparison is made to MR spine fluoroscopy 10/20/2017 FINDINGS/IMPRESSION: Intraoperative images were obtained of L4-S1 hardware removal and L2-S1 discecto my and fusion. Please correlate with intraoperative fluoroscopy and operative report. ACT 112: Negative or not required by law. Electronically signed by: James De La Rosa M.D. 03/30/2022 2:49 PM
[2022-03-30] MEDS ORDERED: ACETAMINOPHEN 1,000 MG/100 ML VIAL IV PRN (15:18)
[2022-03-30] MEDS ORDERED: ALUMINUM/MAGNESIUM SUSP 30 ML UDC PO PRN (15:18)
[2022-03-30] MEDS ORDERED: ONDANSETRON 4 MG OD TAB PO PRN (15:18)
[2022-03-30] MEDS ORDERED: hydrOXYzine HCl 25 MG TAB PO PRN (15:18)
[2022-03-30] MEDS ORDERED: DO NOT ADMINISTER PNEUMOCOCCAL VACCINE PRN (15:18)
[2022-03-30] MEDS ORDERED: NALOXONE HCL 0.4 MG/1 ML VIAL/CARP IV PRN (15:18)
[2022-03-30] MEDS ORDERED: PROMETHAZINE HCL 12.5 MG in SODIUM CHLORIDE 0.9% 50 ML IV PRN (15:18)
[2022-03-30] MEDS ORDERED: traMADol HCL 50 MG TABLET PO PRN (15:18)
[2022-03-30] MEDS ORDERED: MAGNESIUM HYDROXIDE SUSP 30 ML UDC PO PRN (15:18)
[2022-03-30] MEDS ORDERED: diphenhydrAMINE Capsule 25 MG CAP PO PRN (15:18)
[2022-03-30] MEDS ORDERED: bisacodyL 10 MG SUPP PR PRN (15:18)
[2022-03-30] MEDS ORDERED: LORazepam 2 MG/1 ML VIAL IV PRN (15:18)
[2022-03-30] MEDS ORDERED: METOCLOPRAMIDE HCL INJ 5 MG/ML 2 ML VIAL IV PRN (15:18)
[2022-03-30] MEDS ORDERED: FAMOTIDINE 20 MG TAB PO PRN (15:18)
[2022-03-30] MEDS ORDERED: HYDROmorphone INJ 1 MG/ML SYRINGE IV PRN (15:18)
[2022-03-30] MEDS ORDERED: ALBUTEROL HFA 8 GM INHALER INH PRN (15:18)
[2022-03-30] MEDS ORDERED: ACETAMINOPHEN 500 MG TAB PO PRN (15:18)
[2022-03-30] MEDS ORDERED: LORazepam 0.5 MG TAB PO PRN (15:18)
[2022-03-30] MEDS ORDERED: SOD PHOSPHATE/SOD BIPHOSPHATE ENEMA 132 ML BTL PR PRN (15:18)
[2022-03-30] MEDS ORDERED: HYDROmorphone INJ 0.5 MG/0.5 ML SYR IV PRN (15:18)
[2022-03-30] MEDS ORDERED: DO NOT ADMINISTER FLU VACCINE PRN (15:18)
[2022-03-30] MEDS: LACTATED RINGER'S 1,000 ML IV SCH (16:14)
--- NOTE | 2022-03-30 16:15 | Hospitalist Consultation ---
Date of Consultation March 30, 2022 Assessment & Plan (1) Neurogenic claudication due to lumbar spinal stenosis: - POD#0, EBL 150cc, 1 CHINO drain, no complications. - Pain/ABX/IVF/diet/drain management/transfusion needs/activity per primary team - Rescue Narcan ordered for over sedation PRN - VTE prophylaxis per primary service- SCDs in place - CBC and BMP in AM. - Baseline renal function: Cr 0.58, GFR93.4 on 03/09 - Baseline Hgb: 12.9 on 03/09 (2) Bradycardia: -In the immediate postop period, patient has been bradycardic, initial HR in mid-high 40s, in the setting of fentanyl, anesthesia, and taking metoprolol, now improved to high 50s 60s. Review of EKG on 03/09 shows sinus bradycardia without any other abnormal findings such as AV block. Patient did take her metoprolol this morning. Suspect bradycardia commendation of metoprolol and anesthesia, will obtain EKG now and monitor vital signs overnight, her HR appears to range 60-70s with transient recordings in 50s. (3) Impaired fasting glucose: - A1c 6.4% in February, patient currently managing with diet, exercise. - Preop BSG 141. - Patient has steroid started by orthopedics, will add on BSG checks ACHS. Can add on SSI if sugars consistently elevated. (4) HTN (hypertension): - Continue amlodipine, metoprolol. (5) Hyperlipidemia: - Continue atorvastatin. (6) Asthma: - Has recently been well controlled. Albuterol inhaler as needed. (7) Osteoporosis: - Continue calcium, vitamin D supplementation. Alendronate as prescribed. Plan - Admitted to med/surg per primary team. - SCDs ordered and encouraged. - Full Code. Thank you for involving us in the care of Adia Arriaga. Please do not hesitate to call with questions or concerns. At this time medicine service will sign off, but will chart check tomorrow. Supervising Physician Co-Signing Physician Notes Patient seen and examined, chart reviewed, case discussed with Cindy Gloria PA-C and I agree with the assessment and plan as above except as otherwise noted Labs and images reviewed Adia Arriaga is a 71-year-old female with a past medical history of asthma, eczema, osteoporosis, hypertension, hyperlipidemia, vitamin D deficiency, and lumbar stenosis with neurogenic claudication who presented for scheduled L2-L4 decompression and L2-S1 fusion, interbody cage L3-L4; L4-S1 hardware removal, spinal cord monitoring with Dr. Leigh. We have been consulted for postoperative medication management. Patient is seen at bedside, is having some mid back itchiness/discomfort without radiation into her legs. Sensation to soft touch is intact in her feet bilaterally without asymmetry, is able to wiggle toes bilaterally. Lungs are clear. Patient with reported transient bradycardia after receiving fentanyl postoperatively, heart rate is regular with a rate ~70 at bedside, denies any syncope/presyncope/lightheadedness, chest pain, shortness of breath. EKG pending to evaluate for heart block, suspect 2/2 analgesia/anesthesia. Neurogenic claudication s/p surgical intervention 03/30/2022: Doing well postoperatively, VTE prophylaxis/pain control/activity per primary team. Preoperatively was with hemoglobin 12.9 and normal renal function. Doing well postoperatively. Asthma: Well-controlled with as needed inhaler. No PFTs available for review. No acute exacerbation, follow clinically. Hypertension: Hemodynamically stable postoperatively, may resume amlodipine tomorrow. Continue metoprolol. Agree with management of chronic issues including hyperlipidemia, elevated fasting glucose as above. Overall patient is doing well postoperatively, hemodynamically stable. Will follow EKG and tartrate given transient bradycardia, recommend BMP/CBC in morning, and routine monitoring. Medicine will chart review in the morning and then sign off if no acute concerns History of Present Illness Reason for Consultation: Postop medical management Requesting Physician: Jd Leigh DO Attending Physician: Jd Leigh DO History of Present Illness Adia Arriaga is a 71-year-old female with past medical history significant for diet-controlled DM2, hypertension, hyperlipidemia, allergic rhinitis, asthma, osteoporosis, and previous lumbar spinal surgery who was admitted today, 03/30 for lumbar decompression fusion with hardware removal with Dr. Leigh. Hospitalist group was consulted for post-operative medication management. Today, she is POD#0 and feels well. She is mildly bradycardic, otherwise her vital signs are within normal limits. Preop glucose 141. At the time of my visit, she is resting comfortably in bed with family at bedside. She is without any complaints. No numbness, weakness, tingling in her extremities. Moving them adequately. Denies fever/chills, weakness, chest pain, palpitations, shortness of breath, cough, orthopnea, abdominal pain, nausea, vomiting. Allergies Allergy/AdvReac Type Severity Reaction Status Date / Time lisinopril Allergy Unknown COUGH Verified 03/30/22 10:23 Home Medications Medication Instructions Recorded Confirmed Type aspirin 81 mg tablet,delayed 81 mg PO DAILY #90 tabs 08/30/18 03/30/22 Rx release calcium carbonate 600 mg-vitamin 1 tab PO BID #180 tabs 08/30/18 03/30/22 Rx D3 20 mcg (800 unit) chewable tablet (Caltrate 600 plus D) cholecalciferol (vitamin D3) 25 1,000 units PO QAM 12/24/18 03/30/22 History mcg (1,000 unit) capsule albuterol sulfate 90 mcg/actuation 2 puff inhalation Q4H PRN cough 10/04/21 Rx aerosol inhaler (Ventolin HFA) and wheezing #8.5 grams meloxicam 15 mg tablet 15 mg PO DAILY #90 tabs 10/04/21 03/30/22 Rx metoprolol tartrate 50 mg tablet 50 mg PO BID #180 tabs 10/04/21 03/30/22 Rx fluticasone propionate 50 2 spray intranasal QAM 03/03/22 03/30/22 History mcg/actuation nasal spray,suspension (Flonase Allergy Relief) alendronate 70 mg tablet (Fosamax) 70 mg PO .COMPLEX #12 tabs 03/29/22 03/30/22 Rx amlodipine 10 mg tablet (Norvasc) 10 mg PO DAILY 03/30/22 03/30/22 History atorvastatin 10 mg tablet (Lipitor) 10 mg PO DAILY 03/30/22 03/30/22 History loratadine 10 mg tablet (Claritin) 10 mg PO DAILY 03/30/22 03/30/22 History oxycodone 5 mg tablet 5 mg PO Q6H PRN pain, severe #30 03/30/22 Rx tabs tramadol 50 mg tablet 50 mg PO Q6H PRN pain, moderate 03/30/22 Rx #30 tabs Patient History Medical History Allergic rhinitis Asthma Breathing stable currently Back pain, chronic Eczema Goiter Under observation History of COVID-19 02/22/22 ([facility], PCR), symptoms at time: low grade fever, cough, sinus congestion > symptoms resolved HTN (hypertension) Hyperlipidemia Impaired fasting glucose Hgb A1C 03/04/22= 6.4 Lumbar stenosis with neurogenic claudication Stress incontinence, female Minimal Surgical History H/O rotator cuff surgery H/O: hysterectomy Hx of cataract extraction b/l Previous back surgery L3-S1 decompression, L4-S1 decompression/fusion (10/20/17): Grade view 2, MAC#3, ETT 7 at [facility]. No issues noted per post-op anesthesia progress note. Family History Mother Dementia Lung cancer Father Cancer Grandfather (Maternal) Myocardial infarction Grandmother (Maternal) Alzheimer disease Stroke Other No family history of adverse response to anesthesia Social History Smoking Status: Never smoker Second Hand Exposure: No; Do You Dip or Chew Tobacco: No; Tobacco Cessation Education Requested by Patient: No Hx Alcohol Use: Yes Alcohol type: beer and wine Hx Substance Use: No Preferred Language: Azeri Communication Ability: Effective Visual Impairment: Limited Hearing Ability: Normal Bottle Sorter Required: No Beliefs That Will Affect Care: None marital status: Current Living Situation: Spouse current occupational status: retired Other Information That Helps Us Care for You: No Feels Safe at Home: Yes Safety Concerns: Feels Safe At This Time Childhood Exposure to Second-Hand Smoke: Yes Dental Care, Regularly: Yes Physical Activity Frequency: 1-2 Times per Week Seatbelt Use: always Assistive Devices: Cane Assistive Devices Comment: partial dental implant Review of Systems Review of Systems: Constitutional: No fever/chills, weakness, fatigue, myalgias, anorexia, night sweats Eyes: No diplopia, no worsening or blurred vision ENT: normal hearing, no trouble swallowing Respiratory: No cough, sputum, dyspnea at rest or on exertion Cardiovascular: No chest pain, tightness or palpitations Abdomen: No pain, nausea, vomiting, diarrhea or constipation : Denies dysuria, hematuria, increased urgency/frequency, urinary retention Musculoskeletal: No joint pain, calf pain, swelling Neurologic: No weakness, numbness/tingling, or balance problems Psychiatric: No anxiety or depression Skin: No rash or itch Physical Exam Physical Exam: General: awake, alert, no apparent distress Head: Normocephalic, atraumatic ENT: PERRL, EOMI, no pharyngeal exudate, mucous membranes moist Chest: Clear to auscultation, on room air, no adventitious breath sounds Cardiac: Regular rate and rhythm, no murmur, no JVD, normal peripheral pulses, good capillary refill Abdominal: NABS x 4 quadrants, soft, nontender to palpation, no rebound, guarding or tenderness Extremities: Normal inspection, no peripheral edema or erythema, calfs nontender to palpation Psych: Normal mood and affect Neuro: AAO x 3, strength intact bilaterally and rated 5/5, no motor deficits, speech is clear, no peripheral sensory deficits Skin: no rash or erythema Results & Data Results & Data ([facility]) Vital Signs (Past 12 Hours) Vital Signs Temp Pulse Pulse Resp BP BP Pulse Ox 03/30/22 15:38 57 L 16 119/68 95 03/30/22 15:15 36.3 C L 52 L 17 122/68 99 03/30/22 14:55 49 L 12 120/53 L 96 03/30/22 14:40 49 L 12 114/52 L 95 03/30/22 14:25 36.4 C L 48 L 12 124/56 L 94 03/30/22 14:15 48 L 12 115/52 L 95 03/30/22 14:05 49 L 12 117/57 L 94 03/30/22 13:55 64 16 160/71 H 100 03/30/22 13:48 36.1 C L 76 10 L 169/77 H 95 03/30/22 10:30 36.9 C 68 18 147/72 H 99 O2 Del Method O2 Flow Rate 03/30/22 15:38 Nasal Cannula 1 03/30/22 15:15 Nasal Cannula 2 03/30/22 14:55 Nasal Cannula 3 03/30/22 14:40 Nasal Cannula 3 03/30/22 14:25 Nasal Cannula 3 03/30/22 14:15 Nasal Cannula 3 03/30/22 14:05 Room Air 03/30/22 13:55 Oxymask 5 03/30/22 13:48 Oxymask 5 03/30/22 10:30 Room Air Laboratory Results Abnormal lab results 03/30/22 03/30/22 Range/Units 10:17 10:22 POC Glucose 141 H (70-99) mg/dl Crossmatch See Detail Diagnostic Findings Lumbar Spine X-Ray 03/30/22 00:00 FL lumbar spine 2-3V CLINICAL HISTORY: L2-L4 DECOMP;L2-S1 FUSION; L4-S1 HARDWARE REMOVAL TECHNIQUE: 2 views were obtained with the C-arm in the OR with the above procedure. Total fluoroscopy time was 18.5 seconds. Radiation dose was 10.34 mGy. Comparison: Comparison is made to MR spine fluoroscopy 10/20/2017 FINDINGS/IMPRESSION: Intraoperative images were obtained of L4-S1 hardware removal and L2-S1 discectomy and fusion. Please correlate with intraoperative fluoroscopy and operative report. ACT 112: Negative or not required by law. Electronically signed by: James De La Rosa M.D. 03/30/2022 2:49 PM PG Care Time/CCT Total # of Minutes Spent Total Time Spent with Patient: Total time spent is greater than 50% in coordination of care (as documented) at patient's floor/unit and/or counseling patient: Coding Level of Care Code INP/OBS CONSULT LVL 3, 45 MIN Diagnoses Neurogenic claudication due to lumbar spinal stenosis M48.062 Bradycardia R00.1 Impaired fasting glucose R73.01 HTN (hypertension) I10 Hyperlipidemia E78.5 Asthma J45.909 Osteoporosis M81.0
[2022-03-30] MEDS: oxyCODONE HCL IR 5 MG TAB (IMMEDIATE RELEASE) PO PRN (17:20)
[2022-03-30] MEDS: DOCUSATE SODIUM/SENNA 50/8.6MG TAB PO SCH (20:16)
[2022-03-30] MEDS: ceFAZolin 1000MG 1,000 MG/7.5 ML SYR IV SCH (20:16)
[2022-03-30] MEDS: METOPROLOL TARTRATE 50 MG TAB PO SCH (20:16)
[2022-03-30] MEDS: CALCIUM 600MG + VIT D 400 IU TAB PO SCH (20:17)
[2022-03-31] MEDS: oxyCODONE HCL IR 5 MG TAB (IMMEDIATE RELEASE) PO PRN ×3 (04:44→20:49)
[2022-03-31] MEDS: ceFAZolin 1000MG 1,000 MG/7.5 ML SYR IV SCH (04:45)
[2022-03-31] MEDS: LACTATED RINGER'S 1,000 ML IV SCH (05:51)
[2022-03-31] MEDS: POLYETHYLENE (MIRALAX) 17 GM PACK PO SCH ×4 (05:52→23:18)
[2022-03-31] MEDS: LORATADINE 10 MG TAB PO SCH (08:30)
[2022-03-31] MEDS: CALCIUM 600MG + VIT D 400 IU TAB PO SCH ×2 (08:30→20:42)
[2022-03-31] MEDS: CHOLECALCIFEROL 1,000 UNITS 25 MCG TAB PO SCH (08:30)
[2022-03-31] MEDS: METOPROLOL TARTRATE 50 MG TAB PO SCH ×2 (08:30→20:43)
[2022-03-31] MEDS: ATORVASTATIN 10 MG TAB PO SCH (08:31)
[2022-03-31] MEDS: amLODIPine BESYLATE 5 MG TAB PO SCH (08:31)
[2022-03-31] MEDS: ASPIRIN 81 MG ECTAB PO SCH (08:31)
[2022-03-31] MEDS: FLUTICASONE PROPIONATE NA SPR 16 GM BTL SCH (08:32)
[2022-03-31] MEDS: dexAMETHasone 6 MG in SYRINGE 0 ML IV SCH (08:36)
--- NOTE | 2022-03-31 08:50 | Orthopedic Progress Note ---
Date of Service March 31, 2022 Assessment & Plan (1) Neurogenic claudication due to lumbar spinal stenosis: Plan: At this time we will continue physical therapy monitor CHINO output over the discharge home in the next few days. Admission and Anticipated Discharge Date Admission Date: March 30, 2022 Subjective Back pain is controlled leg pain markedly improved Physical Exam Physical Exam: On exam she is sitting at bed. She is comfortable. Is good strength testing. Results & Data ([facility] [place]) Vital Signs (Past 12 Hours) Vital Signs Temp Pulse Resp BP Pulse Ox O2 Del Method O2 Flow Rate 03/31/22 08:28 69 126/73 03/31/22 07:48 36.7 C 60 16 113/64 95 Room Air 03/31/22 03:19 36.9 C 81 16 118/69 95 Nasal Cannula 1.0
[2022-03-31 09:16] LABS: Basophils # (auto) 0.02 K/uL (0-0.2); Basophils % (auto) 0.1 %; Hematocrit (blood only) 31.6 % (34.1-44.9); Immature Granulocytes # (auto) 0.11 K/uL (0.00-0.02); Immature Granulocytes % (auto) 0.6 %; Lymphocytes # (auto) 1.33 K/uL (1.2-3.4); Lymphocytes % (auto) 7.1 %; Mean Corpuscular Hemoglobin 29.2 pg (25.0-34.0); Mean Corpuscular Hgb Conc 34.8 g/dL (32.0-36.0); Mean Corpuscular Volume 83.8 fL (80.0-100.0); Mean Platelet Volume 10.6 fL (9.4-12.3); Monocytes # (auto) 1.15 K/uL (0.24-0.82); Monocytes % (auto) 6.1 %; Neutrophils # (auto) 16.18 K/uL (1.4-6.5); Neutrophils % (auto) 86.1 %; Platelet Count 281 K/uL (130-400); RDW Coefficient of Variation 13.2 % (11.5-14.5); RDW Standard Deviation 40.2 fL (36.4-46.3); Red Blood Count 3.77 M/uL (3.93-5.22); White Blood Count 18.79 K/ul (4.8-10.8)
[2022-03-31 09:43] LABS: BUN Creatinine Ratio 15.9 (10-20); Calcium 9.7 mg/dl (8.5-10.1); Creatinine Clr Calc Pharmacy 57.3 ml/min; Est GFR (Non-African American) 72.5 ml/min; Potassium 3.8 mmol/L (3.5-5.1)
[2022-03-31] MEDS ORDERED: ALUMINUM/MAGNESIUM SUSP 30 ML UDC PO PRN (17:00)
[2022-03-31] MEDS ORDERED: GLUCAGON FOR INJ 1 MG VIAL SQ PRN (19:33)
[2022-03-31] MEDS ORDERED: GLUCOSE 40% GEL 15 GM TUBE PO PRN (19:33)
[2022-03-31] MEDS ORDERED: GLUCOSE 10 TAB/TUBE PO PRN (19:33)
[2022-03-31] MEDS ORDERED: CARBOHYDRATES FOR HYPOGLYCEMIA PO PRN (19:33)
[2022-03-31] MEDS ORDERED: DEXTROSE 50% 50 ML SYRINGE IV PRN (19:33)
--- NOTE | 2022-03-31 19:43 | Hospitalist Progress Note ---
Date of Service March 31, 2022 Assessment & Plan (1) Neurogenic claudication due to lumbar spinal stenosis: Plan: - POD#1, EBL 150cc, 1 CHINO drain, no complications. - Pain/ABX/IVF/diet/drain management/transfusion needs/activity per primary team -Pain is well controlled - VTE prophylaxis per primary service- SCDs in place - Baseline renal function: Cr 0.58, GFR93.4 on 03/09 - Baseline Hgb: 12.9 on 03/09 - HgB is stable - Afebrile (2) Bradycardia: Plan: -In the immediate postop period, patient has been bradycardic, initial HR in mid-high 40s, in the setting of fentanyl, anesthesia, and taking metoprolol, now improved to high 50s 60s. Review of EKG on 03/09 shows sinus bradycardia without any other abnormal findings such as AV block. Patient did take her metoprolol this morning. Suspect bradycardia commendation of metoprolol and anesthesia, will obtain EKG now and monitor vital signs overnight, her HR appears to range 60-70s with transient recordings in 50s. - Regular on exam - HR in the 60s (3) Impaired fasting glucose: Plan: - A1c 6.4% in February, patient currently managing with diet, exercise. - Preop BSG 141. - Patient has steroid started by orthopedics with decadron 6mg daily - Random glucose 164. BSG 204,176,159,194 - Start Lantus 5 units BID and add Novolog SSI - BSG Q4H while trending. Can change to ACHS tomorrow (4) HTN (hypertension): Plan: - Continue amlodipine, metoprolol. Hemodynamically stable (5) Hyperlipidemia: Plan: - Continue atorvastatin. (6) Asthma: Plan: - Has recently been well controlled. Albuterol inhaler as needed. - No bronchospasm on exam (7) Osteoporosis: Plan: - Continue calcium, vitamin D supplementation. Alendronate as prescribed. Plan - Admitted to med/surg per primary team. - SCDs ordered and encouraged. - Full Code. - Can remove pichardo catheter as patient is ambulating in room - Increase activity per ortho - Anticipate discharge home tomorrow or Monday. - If steroids will be ongoing, may benefit from sliding scale insulin for a short period on discharge Thank you for including us in the care of this patient. We will follow-up on the patient tomorrow with regards to her hyperglycemia. Otherwise, all medical conditions are stable. Admission and Anticipated Discharge Date Admission Date: March 30, 2022 Supervising Physician Co-Signing Physician Notes Attending Attestation - Chart reviewed, care plan d/w GILBERT Meeks. I agree w/ the watts components of his documentation. Abraham Arvizu MD Subjective Back pain is controlled leg pain markedly improved Review of Systems Review of Systems: A total of 10 systems was reviewed and is negative other than as listed in the HPI Physical Exam Physical Exam: GENERAL : No acute distress EYES: No icterus, gaze conjugate NOSE: No evidence of epistaxis MOUTH: No lesions or candidiasis NECK: Supple LUNGS: CTA B/L, no wheezes, rales or rhonchi HEART: Regular, rate controlled ABDOMEN: Soft, NT, ND, BS Present EXTREMITIES: No LE edema, pedal pulses intact NEURO: A&OX3 Results & Data Results & Data ([facility]) Vital Signs (Past 12 Hours) Vital Signs Temp Pulse Resp BP Pulse Ox O2 Del Method 03/31/22 15:49 36.4 C L 63 16 146/69 H 95 Room Air 03/31/22 12:30 36.9 C 60 16 117/65 97 Room Air 03/31/22 07:35 Room Air 03/31/22 08:28 69 126/73 03/31/22 07:48 36.7 C 60 16 113/64 95 Room Air Critical Care Results & Data Vital Signs (Past 12 Hours) Vital Signs Temp Pulse Resp BP Pulse Ox O2 Del Method 03/31/22 15:49 36.4 C L 63 16 146/69 H 95 Room Air 03/31/22 12:30 36.9 C 60 16 117/65 97 Room Air 03/31/22 07:35 Room Air 03/31/22 08:28 69 126/73 03/31/22 07:48 36.7 C 60 16 113/64 95 Room Air Lab & Micro Results (Past 24 Hours) No Data to Display No Data to Display No Data to Display I & O Totals 24 Hours 03/30/22 03/31/22 04/01/22 06:59 06:59 06:59 Intake Total 2250 / 2250 790 / 790 Output Total 2655 / 2655 1070 / 1070 Balance -405 / -405 -280 / -280 Cumulative 02/22/22 13:53 thru 03/31/22 18:57 Intake Total 3040 Output Total 3725 Balance -685 RT Ventilator Mngmt (Last Documented) Ventilator Ordered Settings Respiratory Rate 16 03/31/22 15:49 Ventilator - PT Measurements Respiratory Rate 16 PG Care Time/CCT Total # of Minutes Spent Total Time Spent with Patient: Total time spent is greater than 50% in coordination of care (as documented) at patient's floor/unit and/or counseling patient: Coding Level of Care Code 73931 SUB INP/OBS CARE 04/20MIN Diagnoses Neurogenic claudication due to lumbar spinal stenosis M48.062 Bradycardia R00.1 Impaired fasting glucose R73.01 HTN (hypertension) I10 Hyperlipidemia E78.5 Asthma J45.909 Osteoporosis M81.0
[2022-03-31] MEDS: DOCUSATE SODIUM/SENNA 50/8.6MG TAB PO SCH (20:42)
[2022-03-31] MEDS: INSULIN ASPART PER UNIT SC SCH (20:45)
[2022-03-31] MEDS ORDERED: LANTUS PER UNIT CHARGE SQ SCH (21:00)
--- NOTE | 2022-03-31 21:35 | Electrocardiogram Report ---
Test Reason : Blood Pressure : / mmHG Vent. Rate : 055 BPM Atrial Rate : 055 BPM P-R Int : 148 ms QRS Dur : 070 ms QT Int : 432 ms P-R-T Axes : 033 -02 020 degrees QTc Int : 413 ms Sinus bradycardia Otherwise normal ECG When compared with ECG of 09-MAR-2022 09:23, No significant change was found Confirmed by Lopez Alexis ([id number]) on 03/31/2022 9:35:22 PM Referred By: Jd Leigh Confirmed By:Lopez Alexis
[2022-04-01] MEDS: POLYETHYLENE (MIRALAX) 17 GM PACK PO SCH ×2 (05:55→12:02)
[2022-04-01] MEDS: oxyCODONE HCL IR 5 MG TAB (IMMEDIATE RELEASE) PO PRN ×2 (07:26→14:32)
[2022-04-01] MEDS: LORATADINE 10 MG TAB PO SCH (08:04)
[2022-04-01] MEDS: ASPIRIN 81 MG ECTAB PO SCH (08:04)
[2022-04-01] MEDS: ATORVASTATIN 10 MG TAB PO SCH (08:04)
[2022-04-01] MEDS: CHOLECALCIFEROL 1,000 UNITS 25 MCG TAB PO SCH (08:04)
[2022-04-01] MEDS: METOPROLOL TARTRATE 50 MG TAB PO SCH (08:05)
[2022-04-01] MEDS: amLODIPine BESYLATE 5 MG TAB PO SCH (08:05)
[2022-04-01] MEDS: CALCIUM 600MG + VIT D 400 IU TAB PO SCH (08:05)
[2022-04-01] MEDS: FLUTICASONE PROPIONATE NA SPR 16 GM BTL SCH (08:06)
[2022-04-01] MEDS: dexAMETHasone 6 MG in SYRINGE 0 ML IV SCH (08:07)
[2022-04-01] MEDS: INSULIN ASPART PER UNIT SC SCH ×2 (09:22→13:14)
--- NOTE | 2022-04-01 09:40 | Discharge Summary ---
Date of Service April 01, 2022 Admission HPI Per Admitting Provider This is a 71-year-old female known to the presents chronic persistent back and leg pain after failing since course of nonoperative care she is here for surgical invention. Principal Diagnosis Lumbar spinal stenosis with neurogenic claudication Discharge Data Allergies Allergy/AdvReac Type Severity Reaction Status Date / Time lisinopril Allergy Unknown COUGH Verified 03/30/22 10:23 Consultations 03/30/22 15:59 Consult Hospitalist Routine Procedures Performed Operation Date: 03/30/22 11:35 Actual Procedures p L2-L4 Decompression and L2-S1 Fusion; Interbody Cage L3-L4; L4-S1 Hardware Removal, Spinal Cord Monitoring - Jd Leigh DO Ordered Studies 03/30/22 [place] lumbar spine 2-3V Routine Hospital Course (1) Neurogenic claudication due to lumbar spinal stenosis: Patient underwent lumbar decompression fusion tolerated also taken to orthopedic for postoperative post. #1 he was up and ambulating well on postop day 1 to continue to ambulate well pain well controlled extremity testing CHINO drain". Safely discharged home. Discharge orders instructions from the chart for further review. Total Time Total Time Spent Total Time Spent (In Minutes): 20 minutes Discharge Plan Discharge Items Patient Disposition: Home - Self-Care Reason For Visit: Spinal Stenosis, Lumbar Region with Neurogenic Cla Discharge Diagnosis: Lumbar spinal stenosis with neurogenic claudication Activity: As commented below Non-emergency contact: Primary Care Provider Call non-emergency contact if: you have any medication questions Follow-up/Referrals: Magalis Posadas PA-C [Primary Care Provider] - Diet: Regular Addtl Attending Provider Instructions: ACTIVITY RECOMMENDATIONS: SELF CARE INSTRUCTIONS AFTER THORACIC/LUMBAR FUSIONS 1. You may walk to your tolerance. It is good exercise for your legs and back. Expect some back and intermittent leg aches and pains. 2. You may perform "counter-top" level activities (make a sandwich, janelle with a project, etc.). 3. No bending or lifting of more than 10 pounds or back twisting of any nature (roll like a log when turning in bed). 4. You may ride in a car for 20-30 minutes at a time. No driving until after your first visit with your doctor. 5. Frequent changes of position and restricting sitting to 30 minutes at a time will help limit the amount of back spasms and stiffness you may experience. 6. You may discontinue the use of ambulatory aids (cane, crutches, etc.) once your strength and confidence allow. 7. You may yarn winder the shower and let water strike your incision when you arrive home at least once daily. Do not take a tub bath, sit in a hot tub or go into a swimming pool until after your first recheck in the office. SPECIAL CARE INSTRUCTIONS: VERY IMPORTANT TO READ AND REVIEW A. Your surgical incision has been closed with a cosmetic suture under the skin that will dissolve in about 6 weeks. In 14 days, you can use a pair of clean scissors and cut the suture that is left outside of the skin at the ends of your incision. 1. The small skin tapes can be removed 7 days after surgery if they have not fallen off by that point. 2. You may keep the wound open to air as much as possible to promote healing after post-op day number 5 unless told otherwise by your doctor. 3. If you think the wound looks like it is becoming infected (redness or worsening drainage) and/or you are experiencing fever, chill or worsening back pain and muscle spasms, contact the office so that we may evaluate you as soon as possible. B. Complications are uncommon, but please contact us if you have any signs or symptoms of: 1. wound infection (fever higher than 102.5 degrees F, redness, separation of wound, drainage, or increasing pain from the incision) 2. blood clots in legs (pain, swelling, redness and warmth in legs) 3. urinary tract infection (fever higher than 102.5 degrees F, burning upon urination or increased frequency of urination) 4. nerve problems (inability to walk on your toes or heels, numbness, loss of bowel or bladder control) 5. any other symptoms that concern you C. Please call the office at if you have any concerns or questions about your operation or recovery. D. No smoking! Smoking drastically decreases the chance of a solid fusion. E. Do not take any anti-inflammatory medications (Indocin, Advil, Motrin, Aspirin, Naprosyn, etc.) as these may inhibit the chance of a solid fusion. Tylenol is okay to take for pain. MANAGING PAIN AFTER SPINAL SURGERY 1. Narcotic medication is intended for short-term use and will be provided for surgical pain. Surgical pain usually lasts for a period of 4-6 weeks. Narcotic medication includes Percocet, Vicodin, Darvocet, Tylenol #3 or Lortab. 2. Longer-term pain is more appropriately treated with non-narcotic medication such as Tylenol ES. 3. Muscle spasm is not appropriately treated with narcotics. Muscle relaxers such as Soma, Flexeril or Skelaxin can be used along with Tylenol ES. 4. Remember that we all live with some "aches and pains". This is not unusual or uncommon after an injury or as we get older. a. Back pain is expected and may include muscle spasms for 4 to 6 weeks after surgery. The pain should gradually improve. If the pain worsens for no apparent reason, please contact the office. b. Intermittent leg pain may also be experienced and should not be concerned about unless it worsens for no apparent reason. If so, please contact the office. 5. We will provide appropriate medication within the normal guidelines of their prescribed use. We will also be very cautious and aware of potential abuse and extended duration of patients' medication needs. a. Pain medications are for your comfort and to assist with sleep and rest so that the tissue can heal. They are not provided in order to return to normal activity and should not be used through the day. To do so or worsening pain at night can result from ongoing tissue damage and development of tolerance to the prescribed medicine. 6. Please allow 2-3 days to process refills. Prescriptions will not be mailed but must be picked up at the office. FOLLOW UP VISIT: Keep your scheduled follow-up appointment. Any questions, please call the office at . Pending Studies at Discharge: No Stand-Alone Forms: My [facility] [employer], Smoking Cessation Medications and DC Order Prescriptions: New tramadol 50 mg tablet 50 mg PO Q6H PRN (Reason: pain, moderate) Qty: 30 0RF oxycodone 5 mg tablet 5 mg PO Q6H PRN (Reason: pain, severe) Qty: 30 0RF Continued alendronate [Fosamax] 70 mg tablet 70 mg PO .COMPLEX Qty: 12 3RF Rx Instructions: take one tab by mouth on an empty stomach first thing in the AM with 8 oz of water ONCE WEEKLY, remain upright x 1 hour. aspirin 81 mg tablet,delayed release (DR/EC) 81 mg PO DAILY Qty: 90 3RF Caltrate 600 plus D 600 mg (1,500 mg)-800 unit tablet,chewable 1 tab PO BID Qty: 180 3RF cholecalciferol (vitamin D3) 1,000 unit capsule 1,000 units PO QAM albuterol sulfate [Ventolin HFA] 90 mcg/actuation HFA aerosol inhaler 2 puff INH Q4H PRN (Reason: cough and wheezing ) Qty: 8.5 0RF metoprolol tartrate 50 mg tablet 50 mg PO BID Qty: 180 1RF fluticasone propionate [Flonase Allergy Relief] 50 mcg/actuation spray,suspension 2 spray INTNAS QAM Rx Instructions: administer into each nostril atorvastatin [Lipitor] 10 mg tablet 10 mg PO DAILY amlodipine [Norvasc] 10 mg tablet 10 mg PO DAILY loratadine [Claritin] 10 mg tablet 10 mg PO DAILY Discontinued meloxicam 15 mg tablet 15 mg PO DAILY Qty: 90 1RF Discharge Orders: Discharge Order (Routine); Ordered 04/01/22 Ordered By: Jd Leigh Admission Data Admit Date/Time: 03/30/22 13:33 Attending Provider: Jd Leigh Admit Provider: Jd Leigh Primary Care Provider: Magalis Posadas Other Providers: Chavez Pelayo
--- NOTE | 2022-04-07 14:15 | Anesthesiology Progress Note ---
Date of Service April 07, 2022 Anesthesia Post Procedure Pain Intensity Back: Pain Intensity: 7 Transfer of Care Handoff Completed per policy Notes Mental Status: alert / awake / arousable Patient Amnestic to Procedure: Yes Nausea / Vomiting: adequately controlled Pain: adequately controlled Airway Patency, RR, SpO2: stable & adequate BP & HR: stable & adequate Hydration State: stable & adequate Anesthetic Complications: no major complications apparent
== END 2022-04-01 14:59 | disposition home or self-care (01) | DRG 455 ==
LOC: ASU 09:58 → 3N 13:33

== ENCOUNTER 2024-11-15 06:07 | Inpatient (IN) ==
--- NOTE | 2024-10-10 13:55 | PAT Medication Instructions ---
Medication Instructions Date of Service October 10, 2024 Home Medications Medication Instructions Recorded albuterol sulfate 90 mcg/actuation 2 puff inhalation Q4H PRN cough 02/27/23 aerosol inhaler (Ventolin HFA) and wheezing #8.5 grams metformin 500 mg tablet,extended 500 mg PO QAM #90 tabs 02/27/24 release 24 hr meloxicam 15 mg tablet 15 mg PO QPM #90 tabs 05/24/24 amlodipine 10 mg tablet (Norvasc) 10 mg PO QAM #90 tabs 08/27/24 fluticasone propionate 50 2 spray intranasal QAM #48 grams 09/17/24 mcg/actuation nasal spray,suspension (Flonase Allergy Relief) cholecalciferol (vitamin D3) 25 mcg (1,000 unit) capsule 1,000 units PO QAM albuterol sulfate 90 mcg/actuation aerosol inhaler (Ventolin HFA) 2 puff inhalation Q4H PRN cough and wheezing aspirin 81 mg tablet,delayed release 81 mg PO QAM loratadine 10 mg tablet (Claritin) 10 mg PO QAM metformin 500 mg tablet,extended release 24 hr 500 mg PO QAM meloxicam 15 mg tablet 15 mg PO QPM amlodipine 10 mg tablet (Norvasc) 10 mg PO QAM fluticasone propionate 50 mcg/actuation nasal spray,suspension (Flonase Allergy Relief) 2 spray intranasal QAM Lactobacillus acidophilus 10 billion cell capsule (Probiotic) 10,000 mmu cells PO QAM atorvastatin 10 mg tablet (Lipitor) 20 mg PO QAM calcium polycarbophil 625 mg tablet (FiberCon) 625 mg PO QAM losartan 25 mg tablet (Cozaar) 25 mg PO QAM metoprolol tartrate 50 mg tablet (Lopressor) 50 mg PO BID teriparatide 20 mcg/dose (560 mcg/2.24 mL) subcutaneous pen injector 20 mcg subcut DAILY triamcinolone acetonide 0.1 % topical cream 1 applic topical BID PRN Rash/Eczema ASK your surgeon for instructions meloxicam 15 mg tablet 15 mg PO QPM ASK your prescriber and surgeon aspirin 81 mg tablet,delayed release 81 mg PO QAM STOP taking 24 hours before surgery triamcinolone acetonide 0.1 % topical cream 1 applic topical BID PRN Rash/Eczema STOP 7 days prior to surgery teriparatide 20 mcg/dose (560 mcg/2.24 mL) subcutaneous pen injector 20 mcg subcut DAILY DO NOT take the morning of surgery cholecalciferol (vitamin D3) 25 mcg (1,000 unit) capsule 1,000 units PO QAM loratadine 10 mg tablet (Claritin) 10 mg PO QAM metformin 500 mg tablet,extended release 24 hr 500 mg PO QAM Lactobacillus acidophilus 10 billion cell capsule (Probiotic) 10,000 mmu cells PO QAM calcium polycarbophil 625 mg tablet (FiberCon) 625 mg PO QAM losartan 25 mg tablet (Cozaar) 25 mg PO QAM Take morning of surgery With a small sip of water, OTHERWISE NOTHING TO EAT OR DRINK AFTER MIDNIGHT: albuterol sulfate 90 mcg/actuation aerosol inhaler (Ventolin HFA) 2 puff inhalation Q4H PRN cough and wheezing (if needed) amlodipine 10 mg tablet (Norvasc) 10 mg PO QAM fluticasone propionate 50 mcg/actuation nasal spray,suspension (Flonase Allergy Relief) 2 spray intranasal QAM atorvastatin 10 mg tablet (Lipitor) 20 mg PO QAM metoprolol tartrate 50 mg tablet (Lopressor) 50 mg PO BID Take evening before surgery albuterol sulfate 90 mcg/actuation aerosol inhaler (Ventolin HFA) 2 puff inhalation Q4H PRN cough and wheezing (if needed) metoprolol tartrate 50 mg tablet (Lopressor) 50 mg PO BID Other Notes If you have any questions please call us at [phone] or [phone] or [phone] or [phone]
--- NOTE | 2024-10-16 11:03 | Anesthesiology Consultation ---
Date of Service October 16, 2024 Assessment & Plan (1) Encounter for pre-operative examination: - Check BSG DOS - Infectious disease screening: Per assessment on 10/16/24- No known recent infectious disease contacts or current infectious disease symptoms. - PCP visit (10/18/24): "PE completed.. PAT reviewed with good results. Pt is medically cleared to undergo spinal fusion with Dr Leigh" Chart Review Chart Review: Acceptable Risk for Surgery and Patient seen in Pre Admission Testing Teaching & Discussion Pre-Anesthesia Teaching/Discussion Notes: Instructed NPO after midnight before surgery,except medications with 15 cc of water. Medication instructions provided according to the PAT guidelines. History Surgery Operation Date: 11/15/24 07:45 Proposed Procedures p L1-L2 Decompression, T12-L3 Fusion, Connect to Previous Hardware with Spinal Cord Monitoring - Jd Leigh, Height/Weight Height: 5 ft 1.5 in Weight: 64.1 kg Allergies Allergy/AdvReac Type Severity Reaction Status Date / Time lisinopril AdvReac Intermediate Cough Verified 10/18/24 08:49 Medications Home Medications Medication Instructions Recorded Confirmed Last Taken cholecalciferol (vitamin D3) 25 1,000 units PO QAM 12/24/18 10/18/24 12/22/23 mcg (1,000 unit) capsule albuterol sulfate 90 mcg/actuation 2 puff inhalation Q4H PRN cough 02/27/23 10/18/24 12/13/23 aerosol inhaler (Ventolin HFA) and wheezing #8.5 grams aspirin 81 mg tablet,delayed 81 mg PO QAM 12/20/23 10/18/24 12/22/23 release loratadine 10 mg tablet (Claritin) 10 mg PO QAM 12/20/23 10/18/24 12/27/23 06:00 metformin 500 mg tablet,extended 500 mg PO QAM #90 tabs 02/27/24 10/18/24 Unknown release 24 hr meloxicam 15 mg tablet 15 mg PO QPM #90 tabs 05/24/24 10/18/24 Unknown amlodipine 10 mg tablet (Norvasc) 10 mg PO QAM #90 tabs 08/27/24 10/18/24 Unknown fluticasone propionate 50 2 spray intranasal QAM #48 grams 09/17/24 10/18/24 Unknown mcg/actuation nasal spray,suspension (Flonase Allergy Relief) Lactobacillus acidophilus 10 10,000 mmu cells PO QAM 10/09/24 10/18/24 Unknown billion cell capsule (Probiotic) atorvastatin 10 mg tablet (Lipitor) 20 mg PO QAM 10/09/24 10/18/24 Unknown losartan 25 mg tablet (Cozaar) 25 mg PO QAM 10/09/24 10/18/24 Unknown metoprolol tartrate 50 mg tablet 50 mg PO BID 10/09/24 10/18/24 Unknown (Lopressor) teriparatide 20 mcg/dose (560 20 mcg subcut DAILY 10/09/24 10/18/24 Unknown mcg/2.24 mL) subcutaneous pen injector triamcinolone acetonide 0.1 % 1 applic topical BID PRN 10/09/24 10/18/24 Unknown topical cream Rash/Eczema Past Medical History Medical History Allergic rhinitis Asthma Eczema GERD (gastroesophageal reflux disease) Goiter Under surveillance Denies dysphagia/odynophagia Hiatal hernia "I eat smaller meals" History of COVID-19 (11/14/23) [place] [facility], "asthma attack" > had respiratory treatment (not admitted) HTN (hypertension) Hyperlipidemia Osteoporosis Daily injection Prediabetes Metformin daily Exercise / Class Metabolic Activity II 4-5 Yardwork/Stairs/Walk up hill (one FS: No CP, no SOB) Past Family History Family History Mother Dementia Lung cancer Father Cancer Grandfather (Maternal) Myocardial infarction Grandmother (Maternal) Alzheimer disease Stroke Other No family history of adverse response to anesthesia Denies family history of Ovarian cancer Prostate cancer Breast cancer Colorectal cancer Past Surgical History Surgical History (Updated 10/18/24 @ 09:18 by Magalis Posadas PA-C) H/O rotator cuff surgery Right H/O: hysterectomy History of appendectomy History of esophagogastroduodenoscopy (EGD) 12/27/23, [facility] Hx of cataract extraction R/L Previous back surgery x3 - hardware present L3-S1 decompression, L4-S1 decompression/fusion (10/20/17): Grade view 2, MAC#3, ETT 7 at [facility] Past Anesthesia History No Hx of Anesthesia Complications and No Family Hx of Anesthesia Complications History of PONV No Hx of PONV and No Hx of Motion Sickness Social History Smoking Status: Never smoker Do You Dip or Chew Tobacco: No Hx Alcohol Use: Yes Alcohol type: beer alcohol intake frequency: a few times a week ("At most") Hx Substance Use: No substance use type: does not use Review of Systems Patient denies chest pain, shortness of breath, dyspnea on exertion, fever, chills, cough, wheezing, palpitations. Physical Exam Vital Signs BP 129/75 P 62 TEMP 98.1 SP02 97%RA RESP 16 Physical Full cervical extension range of motion. Full TMJ range of motion. TMD 3 finger breaths Mallampati Score II Dentition: missing molars, implant (right upper side) Lungs: clear throughout to auscultation Cardiac: regular rate and rhythm, no murmurs noted Spine: normal Carotid arteries: negative bruit Extremities: no LE edema Lab Results Anesthesia Preop Results Results Anesthesia Widget: WBC 6.19 K/ul (4.8-10.8) 10/16/24 Hgb 12.6 g/dl (12.0-16.0) 10/16/24 Hct 37.1 % (37.0-47.0) 10/16/24 Plt 271 K/uL (130-400) 10/16/24 Na 140 mmol/L (136-145) 10/16/24 K 4.0 mmol/L (3.5-5.1) 10/16/24 Cl 102 mmol/L (98-107) 10/16/24 CO2 31 mmol/L (21-32) 10/16/24 BUN 14 mg/dl (6-23) 10/16/24 Creat 0.74 mg/dl (0.6-1.2) 10/16/24 Glucose Level 102 mg/dl (70-99(Fasting)) H 10/16/24 PT 10.4 Seconds (9.0-12.0) 10/16/24 PTT 26 Seconds (21-31) 10/16/24 INR 1.0 (0.9-1.1) 10/16/24 TSH 1.228 uIu/ml (0.300-4.500) 08/27/24 HA1c 6.1 % (4.5-5.6) H 10/16/24 Urine Color Yellow 10/16/24 Urine Appearance Clear (Clear) 10/16/24 Urine pH 8.0 (4.5-7.5) H 10/16/24 Urine Specific [place] 1.007 (1.000-1.030) 10/16/24 Urine Protein Negative (Negative) 10/16/24 Urine Glucose (UA) Negative (Negative) 10/16/24 Urine Ketones Negative (Negative) 10/16/24 Urine Blood Negative (Negative) 10/16/24 Urine Nitrite Negative (Negative) 10/16/24 Urine Bilirubin Negative (Negative) 10/16/24 Urine Urobilinogen Negative (Negative) 10/16/24 Urine Leukocyte Esterase Negative (Negative) 10/16/24 Blood Type O Positive 10/16/24 Antibody Screen NEGATIVE 10/16/24 Testing Laboratory Results Urine culture (09/06/24): no growth Electrocardiogram Date: 10/16/24 SB at 58bpm. Low voltage QRS. No significant change compared to 03/30/2022 ECG per assessment counselor comparison. Chest X-Ray Date: 10/16/24 Findings: + NAD
[2024-11-15] MEDS ORDERED: ONDANSETRON INJ 2 MG/ML 2 ML VIAL ONE (06:45)
[2024-11-15] MEDS ORDERED: MIDAZOLAM HCL 1 MG/ML 2ML VIAL ONE (06:45)
[2024-11-15] MEDS: ACETAMINOPHEN 500 MG TAB PO SCH (06:45)
[2024-11-15] MEDS ORDERED: PROPOFOL IV EMULSION 10 MG/ML 20 ML VIAL IV ONE ×2 (06:45→06:55)
[2024-11-15] MEDS ORDERED: KETAMINE HCL 10MG/ML SYR ONE (06:45)
[2024-11-15] MEDS ORDERED: DEXAMETHASONE SOD INJ 4 MG/ML VIAL ONE (06:45)
[2024-11-15] MEDS ORDERED: ROCURONIUM BROMIDE 10 MG/ML 5 ML VIAL IV ONE ×2 (06:45→08:39)
[2024-11-15] MEDS ORDERED: LIDOCAINE 2% 2 ML VIAL/AMP(20MG/ML) INFIL ONE (06:45)
[2024-11-15] MEDS: GABAPENTIN 300 MG CAP PO SCH (06:46)
[2024-11-15] MEDS: LR 60ML/HR IV SCH (06:46)
[2024-11-15] MEDS: CeleBREX 200 MG CAP PO SCH (06:46)
[2024-11-15] MEDS: LR 15ML/HR IV SCH (06:57)
--- NOTE | 2024-11-15 07:46 | History & Physical Bridge Note ---
Date of Service November 15, 2024 History & Physical Bridge Note I have examined the patient, reviewed the History & Physical and in the interval since the performance of the History & Physical I have noted the following changes of clinical significance: no changes noted
--- NOTE | 2024-11-15 07:47 | History & Physical Report ---
Date of Service November 15, 2024 Assessment & Plan (1) Other spondylosis with radiculopathy, lumbar region: Plan: L1-L2 decompression T12-L3 fusion connected previous hardware History of Present Illness Chief Complaint: Back and leg pain Primary Care Provider: Stephania Guzman DO 74-year-old female who presents with persistent back and leg pain after failing since course of nonoperative care is here for surgical invention. Allergies Allergy/AdvReac Type Severity Reaction Status Date / Time lisinopril AdvReac Intermediate Cough Verified 11/15/24 06:22 Home Medications Medication Instructions Recorded Confirmed Type cholecalciferol (vitamin D3) 25 1,000 units PO QAM 12/24/18 11/15/24 History mcg (1,000 unit) capsule albuterol sulfate 90 mcg/actuation 2 puff inhalation Q4H PRN cough 02/27/23 11/15/24 Rx aerosol inhaler (Ventolin HFA) and wheezing #8.5 grams aspirin 81 mg tablet,delayed 81 mg PO QAM 12/20/23 11/15/24 History release loratadine 10 mg tablet (Claritin) 10 mg PO QAM 12/20/23 11/15/24 History metformin 500 mg tablet,extended 500 mg PO QAM #90 tabs 02/27/24 11/15/24 Rx release 24 hr meloxicam 15 mg tablet 15 mg PO QPM #90 tabs 05/24/24 11/15/24 Rx amlodipine 10 mg tablet (Norvasc) 10 mg PO QAM #90 tabs 08/27/24 11/15/24 Rx fluticasone propionate 50 2 spray intranasal QAM #48 grams 09/17/24 11/15/24 Rx mcg/actuation nasal spray,suspension (Flonase Allergy Relief) Lactobacillus acidophilus 10 10,000 mmu cells PO QAM 10/09/24 11/15/24 History billion cell capsule (Probiotic) atorvastatin 10 mg tablet (Lipitor) 20 mg PO QAM 10/09/24 11/15/24 History losartan 25 mg tablet (Cozaar) 25 mg PO QAM 10/09/24 11/15/24 History metoprolol tartrate 50 mg tablet 50 mg PO BID 10/09/24 11/15/24 History (Lopressor) teriparatide 20 mcg/dose (560 20 mcg subcut DAILY 10/09/24 11/15/24 History mcg/2.24 mL) subcutaneous pen injector triamcinolone acetonide 0.1 % 1 applic topical BID PRN 10/09/24 11/15/24 History topical cream Rash/Eczema Past Med/Surg History Problem List (Updated 11/15/24 @ 07:47 by Jd Leigh DO) Other spondylosis with radiculopathy, lumbar region Gastroesophageal reflux Neurogenic claudication due to lumbar spinal stenosis Encounter for pre-operative examination Eczema Osteoporosis Allergic rhinitis (Acute) Asthma (Acute) Cystocele (Acute) Enthesopathy (Acute) Goiter (Acute) Under observation HTN (hypertension) (Acute) Hyperlipidemia (Acute) Impaired fasting glucose (Acute) Hgb A1C 03/04/22= 6.4 Stress incontinence, female (Acute) Minimal Vitamin D deficiency (Acute) Lumbar stenosis with neurogenic claudication Medical History (Updated 11/15/24 @ 07:47 by Jd Leigh DO) GERD (gastroesophageal reflux disease) Eczema Goiter Under surveillance Denies dysphagia/odynophagia Hiatal hernia "I eat smaller meals" Prediabetes Metformin daily Osteoporosis Daily injection Allergic rhinitis Asthma Hyperlipidemia HTN (hypertension) History of COVID-19 (11/14/23) [place] [facility], "asthma attack" > had respiratory treatment (not admitted) Surgical History History of appendectomy H/O: hysterectomy History of esophagogastroduodenoscopy (EGD) 12/27/23, [facility] Hx of cataract extraction R/L H/O rotator cuff surgery Right Previous back surgery x3 - hardware present L3-S1 decompression, L4-S1 decompression/fusion (10/20/17): Grade view 2, MAC#3, ETT 7 at [facility] Family History Mother Dementia Lung cancer Father Cancer Grandfather (Maternal) Myocardial infarction Grandmother (Maternal) Alzheimer disease Stroke Other No family history of adverse response to anesthesia Denies family history of Ovarian cancer Prostate cancer Breast cancer Colorectal cancer Social History (Updated 08/27/24 @ 10:40 by DION Oneal) Smoking Status: Never smoker Second Hand Exposure: No; Do You Dip or Chew Tobacco: No; Tobacco Cessation Education Requested by Patient: No Hx Alcohol Use: Yes Alcohol type: beer Alcohol Intake Frequency: Monthly or Less Hx Substance Use: No Preferred Language: Korean Communication Ability: Effective Visual Impairment: Limited Hearing Ability: Normal Cdl Program Coordinator Required: No Beliefs That Will Affect Care: None marital status: Current Living Situation: Spouse current occupational status: retired How many Children do You have: 2 Other Information That Helps Us Care for You: No Feels Safe at Home: Yes Safety Concerns: Feels Safe At This Time Childhood Exposure to Second-Hand Smoke: Yes Diet: low carbohydrate, low salt and regular caffeine: Yes during the past year weight has: remained stable Dental Care, Regularly: Yes Physical Activity Frequency: Daily Physical Activity Frequency Comment: leg exercises, walking, house work Seatbelt Use: always Sunscreen Use: Yes Do you think of yourself as: straight/heterosexual Gender Identity: Female Assistive Devices: Glasses and Other Assistive Devices Comment: x1 Dental Implant Physical Exam Physical Exam: Patient is alert and oriented Heart regular rhythm lungs clear Results & Data Results & Data Vital Signs (Past 12 Hours) Vital Signs Temp Pulse Resp BP Pulse Ox O2 Del Method 11/15/24 06:30 36.8 C 65 16 167/72 H 98 Room Air
[2024-11-15] MEDS: BUPIVACAINE/EPINEPHRINE 0.25% 1:200,000 30 ML VIAL ONE (08:25)
[2024-11-15] MEDS ORDERED: GLYCOPYRROLATE 0.2 MG/ML VIAL ONE (09:10)
[2024-11-15] MEDS ORDERED: PHENYLEPHRINE 100MCG/ML 5ML SYR ONE (09:10)
[2024-11-15] MEDS ORDERED: ePHEDrine sulfate 50 MG/5 ML SYR ONE (09:10)
[2024-11-15] MEDS: ceFAZolin 330 MG/ML 1 GM VIAL ONE (09:19)
[2024-11-15] MEDS ORDERED: SUGAMMADEX SODIUM 200 MG/2 ML VIAL IV ONE ×2 (09:31→09:45)
[2024-11-15] MEDS: FLOSEAL HEMOSTATIC MATRIX 10ML TOP ONE (09:36)
--- NOTE | 2024-11-15 09:46 | Operative Report ---
Post Operative Report Pre & Post Diagnosis Operation Date: 11/15/24 07:45 Pre-Op Diagnosis: #1 other spondylosis with radiculopathy, lumbar region #2 lumbar spinal stenosis Post-Op Diagnosis: Same I identified the patient and participated in the time-out.: Yes Procedure Operation Date: 11/15/24 07:45 Actual Procedures #1 decompression T12-L1 L1-L2. #2 posterior spinal fusion T12-L3. #3 placement posterior instrumentation T12-L1 with connectors at L2-L3. #4 interbody fusion L1-L2. #5 placement Spira 9 x 26 mm at L1-2. #6 placement locally harvested morselized autograft posterior gutters. #7 placement of Proteus combined with Koros in the posterior lateral gutters and os design interbody space. #8 application of versa wrap of the exposed dura. Surgeon Jd Leigh DO Senior Process Control Tech Fred Mobley Estimated Blood Loss 100 Findings Consistent with Post-Op Diagnosis Specimens None Indications This is a 74-year-old female who presents publish diagnosis of failed course of nonoperative care is here for surgical invention. Description of Procedure Patient was met with identified informed sent obtained. Patient was then taken to the operative suite underwent intubation placed in a prone position on the Kiran table chest padded bolsters. All bony prominences well-padded I suspected to ensure no external pressure placed upon them. This point the thoracolumbar spine was prepped and draped normal sterile fashion. Sharp dissection with the assistance of Bovie cautery was performed down to and exposing the lamina and transverse processes of T12-L1 and the instrumentation at L2-L3. Then proceeded to perform a complete laminectomy of L1 with bilateral medial facetectomies and foraminotomies followed by partial laminectomy of T12 with bilateral medial facetectomies to address all subarticular stenosis. Pedicle screws were then placed in T12-L1 bilaterally with assistance of fluoroscopy and a connector attached to the george at L2-L3. By way of transforaminal approach on the left complete discectomy of L1-L2 was performed endplates corrected to subcortical main bone and a 9 x 26 mm spiral cage filled with os design bone graft tapped in position. The proper size rods were then contoured placed and locked in a final position bilaterally. The transverse processes of T12 L1-L2-L3 burred to subcortical bleeding bone. Koros combined with Proteus and local autograft placed in posterior gutters. First wrap placed over the exposed dura. 15 round CHINO drain inserted. The incision was then closed with 1 Vicryl the fascia 2-0 Vicryl subcutaneously and 4 Monocryl for final skin closure. Steri-Strips sterile dressing placed. Patient waken taken to PACU in stable condition. Please note Fred record was present of the entire procedure and on the patient positioning complex portion of the surgery and vascular closure. I attest to the content of the Intraoperative Record and any orders documented therein. Any exceptions are noted below.
[2024-11-15] MEDS ORDERED: ONDANSETRON INJ 2 MG/ML 2 ML VIAL IV PRN ×2 (09:48→12:35)
[2024-11-15] MEDS ORDERED: HYDROmorphone INJ 2 MG/ML SYR/VIAL IV PRN (09:48)
[2024-11-15] MEDS ORDERED: PROMETHAZINE HCL 6.25 MG in SODIUM CHLORIDE 0.9% 50 ML IV PRN (09:48)
[2024-11-15] MEDS ORDERED: ATROPINE SULFATE 0.1 MG/ML 10ML SYR IV PRN (09:48)
--- NOTE | 2024-11-15 10:04 | Fluoroscopy Report ---
FL lumbar spine 2-3V CLINICAL HISTORY: L1-L2 DECOMPRESSION, T12-L3 FUSION COMPARISON STUDY: None FLUOROSCOPY TIME: 23 seconds FLUOROSCOPY IMAGES: 3 EXPOSURE DOSE: 12 mGy FINDINGS: Fluoroscopy was provided for spinal surgery. IMPRESSION: Intraoperative fluoroscopy. ACT 112: Negative or not required by law. Electronically signed by: Raf Daigle M.D. 11/15/2024 10:03 AM
--- NOTE | 2024-11-15 12:18 | Anesthesiology Progress Note ---
Date of Service November 15, 2024 Anesthesia Post Procedure Vital Signs Vital Signs: Temp Pulse Pulse Resp BP Pulse Ox O2 Del Method 11/15/24 12:00 49 L 14 107/48 L 100 Nasal Cannula 11/15/24 11:45 36.4 C L 49 L 12 120/51 L 100 Nasal Cannula 11/15/24 11:30 58 L 19 130/59 L 100 Nasal Cannula 11/15/24 11:15 54 L 12 140/62 100 Nasal Cannula 11/15/24 11:05 53 L 12 116/43 L 99 Nasal Cannula 11/15/24 10:55 36.4 C L 64 13 112/47 L 97 Nasal Cannula 11/15/24 10:45 62 13 119/49 L 97 Oxymask 11/15/24 10:35 53 L 12 116/46 L 98 Oxymask 11/15/24 10:25 62 14 139/51 L 99 Oxymask 11/15/24 10:15 65 14 136/65 99 Oxymask 11/15/24 10:05 36.4 C L 73 12 153/64 H 99 Oxymask 11/15/24 06:30 36.8 C 65 16 167/72 H 98 Room Air O2 Flow Rate 11/15/24 12:00 2 11/15/24 11:45 2 11/15/24 11:30 2 11/15/24 11:15 2 11/15/24 11:05 2 11/15/24 10:55 2 11/15/24 10:45 3 11/15/24 10:35 5 11/15/24 10:25 5 11/15/24 10:15 8 11/15/24 10:05 8 11/15/24 06:30 Pain Intensity Bilateral Lower Back: Pain Intensity: 8 Transfer of Care Handoff Completed per policy Notes Mental Status: alert / awake / arousable and participated in evaluation Patient Amnestic to Procedure: Yes Nausea / Vomiting: adequately controlled Pain: adequately controlled Airway Patency, RR, SpO2: stable & adequate BP & HR: stable & adequate Hydration State: stable & adequate Anesthetic Complications: no major complications apparent
[2024-11-15] MEDS ORDERED: SOD PHOSPHATE/SOD BIPHOSPHATE ENEMA 132 ML BTL PR PRN (12:35)
[2024-11-15] MEDS ORDERED: ALUMINUM/MAGNESIUM SUSP 30 ML UDC PO PRN (12:35)
[2024-11-15] MEDS ORDERED: diphenhydrAMINE Capsule 25 MG CAP PO PRN (12:35)
[2024-11-15] MEDS ORDERED: METOCLOPRAMIDE HCL INJ 5 MG/ML 2 ML VIAL IV PRN (12:35)
[2024-11-15] MEDS ORDERED: FAMOTIDINE 20 MG TAB PO PRN (12:35)
[2024-11-15] MEDS ORDERED: LORazepam 0.5 MG TAB PO PRN (12:35)
[2024-11-15] MEDS ORDERED: PROMETHAZINE 12.5 MG/50.5 ML BAG IV PRN (12:35)
[2024-11-15] MEDS ORDERED: MAGNESIUM HYDROXIDE SUSP 30 ML UDC PO PRN (12:35)
[2024-11-15] MEDS ORDERED: DO NOT ADMINISTER FLU VACCINE PRN (12:35)
[2024-11-15] MEDS ORDERED: TRIAMCINOLONE ACET 0.1% CR 15 GM TUBE TOP PRN (12:35)
[2024-11-15] MEDS ORDERED: NALOXONE HCL 0.4 MG/1 ML VIAL/CARP IV PRN (12:35)
[2024-11-15] MEDS ORDERED: ALBUTEROL HFA 8 GM INHALER INH PRN (12:35)
[2024-11-15] MEDS ORDERED: DO NOT ADMINISTER PNEUMOCOCCAL VACCINE PRN (12:35)
[2024-11-15] MEDS ORDERED: ACETAMINOPHEN 1,000 MG/100 ML VIAL IV PRN (12:35)
[2024-11-15] MEDS ORDERED: ONDANSETRON 4 MG OD TAB PO PRN (12:35)
[2024-11-15] MEDS: HYDROmorphone INJ 1 MG/ML SYRINGE IV PRN (16:29)
[2024-11-15] MEDS: DOCUSATE SODIUM/SENNA 50/8.6MG TAB PO SCH (21:15)
[2024-11-15] MEDS: HYDROmorphone INJ 0.5 MG/0.5 ML SYR IV PRN (21:15)
[2024-11-15] MEDS: METOPROLOL TARTRATE 50 MG TAB PO SCH (21:15)
[2024-11-16] MEDS: POLYETHYLENE (MIRALAX) 17 GM PACK PO SCH (05:40)
[2024-11-16 07:11] LABS: Hematocrit (blood only) 32.2 % (37.0-47.0); Hemoglobin 10.9 g/dl (12.0-16.0); Immature Granulocytes # (auto) 0.08 K/uL (0.01-0.20); Immature Granulocytes % (auto) 0.5 %; Mean Corpuscular Hemoglobin 28.8 pg (25.0-34.0); Mean Corpuscular Volume 85.2 fL (80.0-100.0); Platelet Count 258 K/uL (130-400); RDW Standard Deviation 39.7 fL (36.4-46.3); Red Blood Count 3.78 M/uL (4.20-5.40); White Blood Count 16.97 K/ul (4.8-10.8)
[2024-11-16 07:36] LABS: Anion Gap 8.0 (3-11); Blood Urea Nitrogen 12.0 mg/dl (6-23); Calcium 9.3 mg/dl (8.6-10.3); Carbon Dioxide 30.0 mmol/L (21-32); Chloride 101.0 mmol/L (98-107); Creatinine Clr Calc Pharmacy 59.4 ml/min; Glucose 140.0 mg/dl (70-99(Fasting)); Potassium 3.9 mmol/L (3.5-5.1); Sodium 139.0 mmol/L (136-145)
[2024-11-16] MEDS: CHOLECALCIFEROL 25 MCG (1000 UNITS) TAB PO SCH (08:41)
[2024-11-16] MEDS: ATORVASTATIN 20 MG TAB PO SCH (08:41)
[2024-11-16] MEDS: ASPIRIN 81 MG ECTAB PO SCH (08:41)
[2024-11-16] MEDS: LORATADINE 10 MG TAB PO SCH (08:42)
[2024-11-16] MEDS: dexAMETHasone 6 MG in SYRINGE 0 ML IV SCH (08:42)
[2024-11-16] MEDS: LACTOBACILLUS ACIDOPHILUS 1 GM PACK PO SCH (08:42)
[2024-11-16] MEDS: FLUTICASONE PROPIONATE NA SPR 16 GM BTL SCH (08:42)
[2024-11-16] MEDS: LOSARTAN POTASSIUM 25 MG TAB PO SCH (08:42)
[2024-11-16] MEDS ORDERED: DEXTROSE 50% 50 ML SYRINGE IV PRN (08:48)
[2024-11-16] MEDS ORDERED: GLUCOSE 10 TAB/TUBE PO PRN (08:48)
[2024-11-16] MEDS ORDERED: GLUCAGON FOR INJ 1 MG VIAL SQ PRN (08:48)
[2024-11-16] MEDS ORDERED: CARBOHYDRATES FOR HYPOGLYCEMIA PO PRN (08:48)
[2024-11-16] MEDS ORDERED: GLUCOSE 40% GEL 15 GM TUBE PO PRN (08:48)
--- NOTE | 2024-11-16 08:52 | Hospitalist Consultation ---
Date of Consultation November 16, 2024 Assessment & Plan (1) Impaired fasting glucose: (2) HTN (hypertension): (3) Asthma: (4) Osteoporosis: (5) Other spondylosis with radiculopathy, lumbar region: (6) Hyperlipidemia: Plan 74 y/o with history of prior back surgeries who underwent L1-2 decompression and T12-L3 fusion 11/[address] Leigh. She has asthma, hypertension, dyslipidemia, impaired fasting glucose with A1c 6.1%, osteoporosis. # Impaired fasting glucose - has been given perioperative IV dexamethasone for spine surgery -ok to continue metformin 500 mg daily as long as she remains stable, eating -add qA blood glucose checks, premeal/correctional short acting aspart with CF:CR 35:12, carb consistent diet, hypoglycemia precautions -BG 155-129 today at goal # HTN - currently low normal BP throughout today -continue metoprolol and losartan, hold amlodipine # Asthma - not in flare -continue PRN albuterol # HLD - continue atorvastatin # Osteoporosis - is under appropriate outpatient treatment with vitamin D and teriperatide # DVT ppx - currently on ASA 81 mg daily, SCD History of Present Illness Reason for Consultation: Evaluate hypertension, HLD, asthma, impaired fasting glucose Requesting Physician: Dr. Leigh Attending Physician: Jd Leigh, DO History of Present Illness 74 y/o with history of prior back surgeries who underwent L1-2 decompression and T12-L3 fusion 11/[address] Leigh. She has asthma, hypertension, dyslipidemia, impaired fasting glucose with A1c 6.1%, osteoporosis. Longstanding back pain but opted for surgery once LLE weakness progressed. Surgery went as planned. Up in chair midday and awake/alert. Had severe left sided LBP when she first got up but improved and currently controlled on meds. No radiating pain and feels like LLE is stronger postop No CP or dyspnea. No N/V/D. No pichardo. Takes injections for osteoporosis Allergies Allergy/AdvReac Type Severity Reaction Status Date / Time lisinopril AdvReac Intermediate Cough Verified 11/15/24 06:22 Home Medications Medication Instructions Recorded Confirmed Type cholecalciferol (vitamin D3) 25 1,000 units PO QAM 12/24/18 11/15/24 History mcg (1,000 unit) capsule albuterol sulfate 90 mcg/actuation 2 puff inhalation Q4H PRN cough 02/27/23 11/15/24 Rx aerosol inhaler (Ventolin HFA) and wheezing #8.5 grams aspirin 81 mg tablet,delayed 81 mg PO QAM 12/20/23 11/15/24 History release loratadine 10 mg tablet (Claritin) 10 mg PO QAM 12/20/23 11/15/24 History metformin 500 mg tablet,extended 500 mg PO QAM #90 tabs 02/27/24 11/15/24 Rx release 24 hr meloxicam 15 mg tablet 15 mg PO QPM #90 tabs 05/24/24 11/15/24 Rx amlodipine 10 mg tablet (Norvasc) 10 mg PO QAM #90 tabs 08/27/24 11/15/24 Rx fluticasone propionate 50 2 spray intranasal QAM #48 grams 09/17/24 11/15/24 Rx mcg/actuation nasal spray,suspension (Flonase Allergy Relief) Lactobacillus acidophilus 10 10,000 mmu cells PO QAM 10/09/24 11/15/24 History billion cell capsule (Probiotic) atorvastatin 10 mg tablet (Lipitor) 20 mg PO QAM 10/09/24 11/15/24 History losartan 25 mg tablet (Cozaar) 25 mg PO QAM 10/09/24 11/15/24 History metoprolol tartrate 50 mg tablet 50 mg PO BID 10/09/24 11/15/24 History (Lopressor) teriparatide 20 mcg/dose (560 20 mcg subcut DAILY 10/09/24 11/15/24 History mcg/2.24 mL) subcutaneous pen injector triamcinolone acetonide 0.1 % 1 applic topical BID PRN 10/09/24 11/15/24 History topical cream Rash/Eczema oxycodone 5 mg tablet 5 mg PO Q6H PRN pain #30 tabs 11/16/24 Rx Patient History Medical History GERD (gastroesophageal reflux disease) Eczema Goiter Under surveillance Denies dysphagia/odynophagia Hiatal hernia "I eat smaller meals" Prediabetes Metformin daily Osteoporosis Daily injection Allergic rhinitis Asthma Hyperlipidemia HTN (hypertension) History of COVID-19 (11/14/23) [place], "asthma attack" > had respiratory treatment (not admitted) Surgical History History of appendectomy H/O: hysterectomy History of esophagogastroduodenoscopy (EGD) 12/27/23, [facility] Hx of cataract extraction R/L H/O rotator cuff surgery Right Previous back surgery x3 - hardware present L3-S1 decompression, L4-S1 decompression/fusion (10/20/17): Grade view 2, MAC#3, ETT 7 at [facility] Family History Mother Dementia Lung cancer Father Cancer Grandfather (Maternal) Myocardial infarction Grandmother (Maternal) Alzheimer disease Stroke Other No family history of adverse response to anesthesia Denies family history of Ovarian cancer Prostate cancer Breast cancer Colorectal cancer Social History Smoking Status: Never smoker Second Hand Exposure: No; Do You Dip or Chew Tobacco: No; Tobacco Cessation Education Requested by Patient: No Hx Alcohol Use: Yes Alcohol type: beer Alcohol Intake Frequency: Monthly or Less Hx Substance Use: No Preferred Language: Upper Sorbian Communication Ability: Effective Visual Impairment: Limited Hearing Ability: Normal Test Consultant Required: No Beliefs That Will Affect Care: None marital status: Current Living Situation: Spouse current occupational status: retired How many Children do You have: 2 Other Information That Helps Us Care for You: No Feels Safe at Home: Yes Safety Concerns: Feels Safe At This Time Childhood Exposure to Second-Hand Smoke: Yes Diet: low carbohydrate, low salt and regular caffeine: Yes during the past year weight has: remained stable Dental Care, Regularly: Yes Physical Activity Frequency: Daily Physical Activity Frequency Comment: leg exercises, walking, house work Seatbelt Use: always Sunscreen Use: Yes Do you think of yourself as: straight/heterosexual Gender Identity: Female Assistive Devices: Glasses and Other Assistive Devices Comment: x1 Dental Implant Review of Systems 2 Review of Systems: All systems reviewed & are unremarkable except as noted in HPI & below Physical Exam 2 Physical Exam: Last 24h vitals reviewed GEN: no acute distress, sitting up in chair HEENT: pupils equal, sclerae anicteric, moist MM RESP: normal WOB, CTAB CV: reg no mrg ABD: soft/nt/nd +BT Back incision is dressed no strikethrough : no pichardo SKIN: warm and dry, no generalized rashes NEURO: AOx person, place, and situation. Face symmetric, speech normal, moves 4 ext spontaneously and equally Results & Data Results & Data Vital Signs (Past 12 Hours) Vital Signs Temp Pulse Resp BP BP Pulse Ox O2 Del Method 11/16/24 07:42 36.6 C 55 L 16 112/70 98 Room Air 11/16/24 03:59 36.9 C 55 L 16 105/59 L 95 Room Air 11/16/24 00:26 36.5 C 59 L 16 116/54 L 95 Room Air Laboratory Results 11/16/24 06:49 11/16/24 06:49 HG 12.5-->11 A1c 6.1 ECG Additional Comments: personally reviewed preop EKG it is normal PG Care Time/CCT Total # of Minutes Spent Total Time Spent with Patient: Total time spent is greater than 50% in coordination of care (as documented) at patient's floor/unit and/or counseling patient: Coding Level of Care Code 93754 IN/OBS CONSULT LVL 3,45M Diagnoses Impaired fasting glucose R73.01 HTN (hypertension) I10 Asthma J45.909 Osteoporosis M81.0 Other spondylosis with radiculopathy, lumbar region M47.26 Hyperlipidemia E78.5
--- NOTE | 2024-11-16 09:52 | Orthopedic Progress Note ---
Date of Service November 16, 2024 Assessment & Plan (1) Other spondylosis with radiculopathy, lumbar region: Plan: At this time continue physical therapy monitor CHINO operatively discharge home the next few days. Admission and Anticipated Discharge Date Admission Date: November 15, 2024 Subjective Patient's leg pain is markedly improved. Back pain controlled. Physical Exam Physical Exam: Patient is ambulating halls. She is comfortable. Results & Data Vital Signs (Past 12 Hours) Vital Signs Temp Pulse Resp BP BP Pulse Ox O2 Del Method 11/16/24 07:42 36.6 C 55 L 16 112/70 98 Room Air 11/16/24 03:59 36.9 C 55 L 16 105/59 L 95 Room Air 11/16/24 00:26 36.5 C 59 L 16 116/54 L 95 Room Air
[2024-11-16] MEDS: INSULIN ASPART PER UNIT CHARGE SC SCH (12:32)
[2024-11-16 20:46] VITALS: RESP 16
--- NOTE | 2024-11-17 08:34 | Orthopedic Progress Note ---
Date of Service November 17, 2024 Assessment & Plan (1) Other spondylosis with radiculopathy, lumbar region: Plan: Patient is doing well postop day 2 status post thoracolumbar decompression and extension of her fusion from T12 back down to her previous hardware at L3. We will continue with GI DVT prophylaxis as well as pain control measures. Will continue to mobilize with physical therapy. We anticipate discharge to home tomorrow. Admission and Anticipated Discharge Date Admission Date: November 15, 2024 Subjective Patient was seen bedside in room 377 bed 2. She states she is doing better today. Yesterday she had uncontrolled back pain. Now that she is on a better pain regimen she feels much better today. She gets a bit of burning in the right leg along the crawford area. This seems to come and go. She has been up and walking with physical therapy. She intends to go home after surgery. She denies any other numbness, tingling, or paresthesias. Physical Exam Physical Exam: On exam she is alert and oriented. Her strength and sensation are both intact. Her abdomen soft and nontender calves are supple nontender. Her dressing is clean dry and intact she is placed out 30 cc on the 2 previous recordings through her CHINO drain. Results & Data Vital Signs (Past 12 Hours) Vital Signs Temp Pulse Pulse Resp BP BP Pulse Ox 11/17/24 07:55 36.3 C L 56 L 16 116/64 99 11/16/24 23:17 36.9 C 64 16 104/62 96 11/16/24 20:44 36.5 C 68 16 122/59 L 95 O2 Del Method 11/17/24 07:55 Room Air 11/16/24 23:17 Room Air 11/16/24 20:44 Room Air
--- NOTE | 2024-11-17 13:48 | Hospitalist Progress Note ---
Date of Service November 17, 2024 Assessment & Plan (1) Impaired fasting glucose: (2) HTN (hypertension): (3) Asthma: (4) Osteoporosis: (5) Other spondylosis with radiculopathy, lumbar region: (6) Hyperlipidemia: Plan 74 y/o with history of prior back surgeries who underwent L1-2 decompression and T12-L3 fusion 11/[address] Leigh. She has asthma, hypertension, dyslipidemia, impaired fasting glucose with A1c 6.1%, osteoporosis. # Impaired fasting glucose - has been given perioperative IV dexamethasone for spine surgery - last dose tomorrow -ok to continue metformin 500 mg daily as long as she remains stable, eating -add qA blood glucose checks, premeal/correctional short acting aspart with CF:CR 35:12, carb consistent diet, hypoglycemia precautions -BG mainly at goal one spike to 197, steroid effect # HTN - BP normal today -continue metoprolol and losartan, continue to hold amlodipine # Asthma - not in flare -continue PRN albuterol # HLD - continue atorvastatin # Osteoporosis - is under appropriate outpatient treatment with vitamin D and teriperatide # DVT ppx - currently on ASA 81 mg daily, SCD Admission and Anticipated Discharge Date Admission Date: November 15, 2024 Subjective Sitting up in chair, feels better today, incisional back pain improved and controlled. Pain radiating to hips mainly Physical Exam Physical Exam: Last 24h vitals reviewed GEN: no acute distress, sitting up in chair HEENT: pupils equal, sclerae anicteric, moist MM RESP: normal WOB, CTAB CV: reg no mrg ABD: soft/nt/nd +BT Back incision is dressed no strikethrough. one CHINO drain with serosanguineous : no pichardo SKIN: warm and dry, no generalized rashes NEURO: AOx person, place, and situation. Face symmetric, speech normal, moves 4 ext spontaneously and equally Results & Data Results & Data Vital Signs (Past 12 Hours) Vital Signs Temp Pulse Resp BP Pulse Ox O2 Del Method 11/17/24 07:55 36.3 C L 56 L 16 116/64 99 Room Air PG Care Time/CCT Total # of Minutes Spent Total Time Spent with Patient: Total time spent is greater than 50% in coordination of care (as documented) at patient's floor/unit and/or counseling patient: Coding Level of Care Code 78292 SUB INP/OBS CARE MIN Diagnoses Impaired fasting glucose R73.01 HTN (hypertension) I10 Asthma J45.909 Osteoporosis M81.0 Other spondylosis with radiculopathy, lumbar region M47.26 Hyperlipidemia E78.5
[2024-11-18] MEDS: ACETAMINOPHEN 500 MG TAB PO PRN (08:26)
--- NOTE | 2024-11-18 11:21 | Discharge Summary ---
Date of Service November 18, 2024 Admission HPI Per Admitting Provider 74-year-old female who presents with persistent back and leg pain after failing since course of nonoperative care is here for surgical invention. Principal Diagnosis Lumbar spondylosis with radiculopathy Discharge Data Allergies Allergy/AdvReac Type Severity Reaction Status Date / Time lisinopril AdvReac Intermediate Cough Verified 11/15/24 06:22 Consultations 11/15/24 12:35 Consult Hospitalist Routine Procedures Performed Operation Date: 11/15/24 07:45 Actual Procedures p L1-L2 Decompression, T12-L3 Fusion, Connect to Previous Hardware - Jd Leigh DO Ordered Studies 11/15/24 07:45 [place] lumbar spine 2-3V Routine Hospital Course (1) Other spondylosis with radiculopathy, lumbar region: Patient 1 lumbar depression fusion tolerated so was taken orthopedic for postoperative and postop please she progressed appropriately. Improvement of her ambulation and leg pain. CHINO drain decreasing. Pain controlled. Subsidy discharged home. Discharge orders and instructions found in chart for further review. Total Time Total Time Spent Total Time Spent (In Minutes): 20 minutes Discharge Plan Discharge Items Patient Disposition: Home - Home Health Services Reason For Visit: Two-Level Lumbosacral Spondylosis with Radiculopat Discharge Diagnosis: Lumbar spondylosis with radiculopathy Activity: As commented below Non-emergency contact: Primary Care Provider Call non-emergency contact if: you have any medication questions Follow-up/Referrals: Stephania Guzman DO [Primary Care Provider] - [facility] [Non-Staff] - Diet: Regular Addtl Attending Provider Instructions: ACTIVITY RECOMMENDATIONS: SELF CARE INSTRUCTIONS AFTER THORACIC/LUMBAR FUSIONS 1. You may walk to your tolerance. It is good exercise for your legs and back. Expect some back and intermittent leg aches and pains. 2. You may perform "counter-top" level activities (make a sandwich, janelle with a project, etc.). 3. No bending or lifting of more than 10 pounds or back twisting of any nature (roll like a log when turning in bed). 4. You may ride in a car for 20-30 minutes at a time. No driving until after your first visit with your doctor. 5. Frequent changes of position and restricting sitting to 30 minutes at a time will help limit the amount of back spasms and stiffness you may experience. 6. You may discontinue the use of ambulatory aids (cane, crutches, etc.) once your strength and confidence allow. 7. You may imaging center manager the shower and let water strike your incision when you arrive home at least once daily. Do not take a tub bath, sit in a hot tub or go into a swimming pool until after your first recheck in the office. 8. You may resume previous diet. SPECIAL CARE INSTRUCTIONS: VERY IMPORTANT TO READ AND REVIEW A. Your surgical incision has been closed with a cosmetic suture under the skin that will dissolve in about 6 weeks. In 14 days, you can use a pair of clean scissors and cut the suture that is left outside of the skin at the ends of your incision. 1. The small skin tapes can be removed 7 days after surgery if they have not fallen off by that point. 2. You may keep the wound open to air as much as possible to promote healing after post-op day number 5 unless told otherwise by your doctor. 3. If you think the wound looks like it is becoming infected (redness or worsening drainage) and/or you are experiencing fever, chill or worsening back pain and muscle spasms, contact the office so that we may evaluate you as soon as possible. B. Complications are uncommon, but please contact us if you have any signs or symptoms of: 1. wound infection (fever higher than 102.5 degrees F, redness, separation of wound, drainage, or increasing pain from the incision) 2. blood clots in legs (pain, swelling, redness and warmth in legs) 3. urinary tract infection (fever higher than 102.5 degrees F, burning upon urination or increased frequency of urination) 4. nerve problems (inability to walk on your toes or heels, numbness, loss of bowel or bladder control) 5. any other symptoms that concern you C. Please call the office at if you have any concerns or questions about your operation or recovery. D. No smoking! Smoking drastically decreases the chance of a solid fusion. E. Do not take any anti-inflammatory medications (Indocin, Advil, Motrin, Aspirin, Naprosyn, etc.) as these may inhibit the chance of a solid fusion. Tylenol is okay to take for pain. MANAGING PAIN AFTER SPINAL SURGERY 1. Narcotic medication is intended for short-term use and will be provided for surgical pain. Surgical pain usually lasts for a period of 4-6 weeks. Narcotic medication includes Percocet, Vicodin, Darvocet, Tylenol #3 or Lortab. 2. Longer-term pain is more appropriately treated with non-narcotic medication such as Tylenol ES. 3. Muscle spasm is not appropriately treated with narcotics. Muscle relaxers such as Soma, Flexeril or Skelaxin can be used along with Tylenol ES. 4. Remember that we all live with some "aches and pains". This is not unusual or uncommon after an injury or as we get older. a. Back pain is expected and may include muscle spasms for 4 to 6 weeks after surgery. The pain should gradually improve. If the pain worsens for no apparent reason, please contact the office. b. Intermittent leg pain may also be experienced and should not be concerned about unless it worsens for no apparent reason. If so, please contact the office. 5. We will provide appropriate medication within the normal guidelines of their prescribed use. We will also be very cautious and aware of potential abuse and extended duration of patients' medication needs. a. Pain medications are for your comfort and to assist with sleep and rest so that the tissue can heal. They are not provided in order to return to normal activity and should not be used through the day. To do so or worsening pain at night can result from ongoing tissue damage and development of tolerance to the prescribed medicine. 6. Please allow 2-3 days to process refills. Prescriptions will not be mailed but must be picked up at the office. FOLLOW UP VISIT: Keep your scheduled follow-up appointment. Any questions, please call the office at . Pending Studies at Discharge: No Stand-Alone Forms: My [employer], Smoking Cessation Medications and DC Order Prescriptions: New oxycodone 5 mg tablet 5 mg PO Q6H PRN (Reason: pain) Qty: 30 0RF Continued meloxicam 15 mg tablet 15 mg PO QPM Qty: 90 3RF fluticasone propionate [Flonase Allergy Relief] 50 mcg/actuation spray,suspension 2 spray INTNAS QAM Qty: 48 3RF Rx Instructions: administer into each nostril cholecalciferol (vitamin D3) 1,000 unit capsule 1,000 units PO QAM albuterol sulfate [Ventolin HFA] 90 mcg/actuation HFA aerosol inhaler 2 puff INH Q4H PRN (Reason: cough and wheezing ) Qty: 8.5 0RF amlodipine [Norvasc] 10 mg tablet 10 mg PO QAM Qty: 90 3RF metformin 500 mg tablet extended release 24 hr 500 mg PO QAM Qty: 90 3RF aspirin 81 mg tablet,delayed release (DR/EC) 81 mg PO QAM loratadine [Claritin] 10 mg tablet 10 mg PO QAM teriparatide 20 mcg/dose (560mcg/2.24mL) Pen Injector 20 mcg SUBCUT DAILY Patient Comments: "They told me to stop taking it right before my surgery" 11/01/24 Probiotic 10 billion cell Capsule 10,000 mmu cells PO QAM atorvastatin [Lipitor] 10 mg tablet 20 mg PO QAM triamcinolone acetonide 0.1 % cream 1 applic topical BID PRN (Reason: Rash/Eczema) losartan [Cozaar] 25 mg tablet 25 mg PO QAM metoprolol tartrate [Lopressor] 50 mg tablet 50 mg PO BID Discharge Orders: Discharge Order (Routine); Ordered 11/18/24 Ordered By: Jd Leigh Admission Data Admit Date/Time: 11/15/24 09:51 Attending Provider: Jd Leigh Admit Provider: Jd Leigh Primary Care Provider: Stephania Guzman Other Providers: Lizy Carson; [facility]
[2024-11-18 11:29] VITALS: TEMP 97.5; O2SAT 98
[2024-11-18 11:53] VITALS: BP 104/62; PULSE 56
--- NOTE | 2024-11-18 18:31 | Hospitalist Progress Note ---
Date of Service November 18, 2024 Assessment & Plan (1) Impaired fasting glucose: (2) HTN (hypertension): (3) Asthma: (4) Osteoporosis: (5) Other spondylosis with radiculopathy, lumbar region: (6) Hyperlipidemia: Plan 74 y/o with history of prior back surgeries who underwent L1-2 decompression and T12-L3 fusion 11/[address] Leigh. She has asthma, hypertension, dyslipidemia, impaired fasting glucose with A1c 6.1%, osteoporosis. # Impaired fasting glucose - steroid induced hyperglycemia - has not been too bad, will resolve within 2-3 days -ok to continue metformin 500 mg daily at home # HTN - BP normal today -continue metoprolol and losartan, resume amlodipine at home # Asthma - not in flare -continue PRN albuterol # HLD - continue atorvastatin # Osteoporosis - is under appropriate outpatient treatment with vitamin D and teriperatide # DVT ppx - currently on ASA 81 mg daily, SCD Admission and Anticipated Discharge Date Admission Date: November 15, 2024 Subjective Back pain much better Plans home today Physical Exam Physical Exam: Last 24h vitals reviewed GEN: no acute distress, sitting up in chair HEENT: pupils equal, sclerae anicteric, moist MM RESP: normal WOB, CTAB CV: reg no mrg ABD: nd Back incision is dressed no strikethrough. : no pichardo SKIN: warm and dry, no generalized rashes, no LE edema NEURO: AOx person, place, and situation. Face symmetric, speech normal, moves 4 ext spontaneously and equally Results & Data Results & Data Vital Signs (Past 12 Hours) Vital Signs Temp Pulse Pulse Resp BP BP Pulse Ox 11/18/24 11:51 36.4 C L 62 56 L 16 124/76 104/62 98 11/18/24 11:25 36.4 C L 62 16 124/76 98 11/18/24 07:46 36.8 C 55 L 16 146/82 H 99 O2 Del Method 11/18/24 11:51 11/18/24 11:25 Room Air 11/18/24 07:46 Room Air PG Care Time/CCT Total # of Minutes Spent Total Time Spent with Patient: Total time spent is greater than 50% in coordination of care (as documented) at patient's floor/unit and/or counseling patient: Coding Level of Care Code 50935 SUB INP/OBS CARE 04/20MIN Diagnoses Impaired fasting glucose R73.01 HTN (hypertension) I10 Asthma J45.909 Osteoporosis M81.0 Other spondylosis with radiculopathy, lumbar region M47.26 Hyperlipidemia E78.5
== END 2024-11-18 12:55 | disposition home health service (06) | DRG 428 ==
LOC: ASU 06:07 → PACUINP 09:51 → 3N 14:18